=== PATIENT | female | born 1980 | race Caucasian/White ===

== ENCOUNTER 2024-01-12 21:09 | Emergency (ER) | payer OTHER, SELFPAY ==
[2024-01-12 21:12] VITALS: BP 160/98; PULSE 82; TEMP 36.6; O2SAT 98; BMI 40.2
--- NOTE | 2024-01-12 21:20 | XR_ITS ---
The [address] [address] Patient Name: ONESIMO LOPEZ MRN: [id number] date: 1980 Sex: F Assigned Patient Location: ER Current Patient Location: ER Accession/Order Number: [id number] Exam Date: 01/12/2024 21:45 Report Date: 01/12/2024 22:20 At the request of: KINJAL GAXIOLA Procedure: XR elbow RT min 3V EXAM: XR elbow RT min 3V HISTORY: The patient is a 43-year-old female, right elbow injury COMPARISON: None. FINDINGS: The right elbow is radiographically negative with no evidence of fracture, dislocation, fat pad elevation, or other osseous or articular abnormalities. XR/XR elbow RT min 3V IMPRESSION: Negative. Electronically authenticated by: EMIR PRITCHETT Date: 01/12/2024 22:20
--- NOTE | 2024-01-12 21:21 | ED.UPPEXIN1 ---
HPI HPI - Extremity Injury (Upper) General Chief Complaint: Extremity Injury, Upper Stated Complaint: Upper Extremity Injury Time Seen by Provider: 01/12/24 21:14 Source: patient Mode of arrival: walk-in Limitations: no limitations History of Present Illness HPI narrative: Patient is a 43-year-old female presents to the emergency department for right elbow pain after hitting her right elbow on a door frame yesterday. She complains of pain over the lateral epicondyle of the right elbow with radiation of the pain to the forearm and hand. No numbness or tingling. She denies any other associated injuries. She states today the area is still swollen and painful. No meds prior to arrival. She has no concern for . Related Data Home Medications ?Medication ?Instructions ?Recorded ?Confirmed losartan 100 tab 01/12/24 mg-hydrochlorothiazide 25 mg tablet Previous Rx's ?Medication ?Instructions ?Recorded ketorolac 10 mg tablet 10 mg PO TID PRN pain #10 tabs 01/12/24 Allergies Allergy/AdvReac Type Severity Reaction Status Date / Time Penicillins Allergy Intermediate Unknown Verified 01/12/24 21:19 Opioid HPI Opioid Management Most Recent Pain and Opioid Data: No Data to Display Review of Systems ROS Constitutional Denies: fever or chills Ears, nose, mouth, and throat Denies: throat pain or nasal congestion Respiratory Denies: shortness of breath Gastrointestinal Denies: nausea or vomiting Musculoskeletal Reports: extremity pain, extremity swelling and joint pain; Denies: back pain, neck pain or limited range of motion Integumentary/Breast Denies: rash Neurological Denies: numbness in extremities or weakness in extremities Hematologic/Lymphatic Denies: easy bruising or easy bleeding PFSH PFS Social History Little interest or pleasure in doing things: not at all Feeling down, depressed, or hopeless: not at all Exam Narrative Exam Narrative: Gen.: Awake, alert, in no distress Head: Normocephalic, atraumatic ENT: Moist mucous membranes Respiratory: No respiratory distress Extremities: Full extension of the right elbow, no obvious deformity. Mild bony tenderness of the lateral epicondyle of the right elbow. No joint effusion or bursitis noted Psych: Normal mood and affect Neuro: No focal neuro deficit Skin: Warm, dry, intact Constitutional Vital Signs, click to edit/add: Last Vital Signs Temp 97.8 F 01/12/24 21:12 Pulse 82 01/12/24 21:12 Resp 18 01/12/24 21:12 BP 160/98 H 01/12/24 21:12 Pulse Ox 98 01/12/24 21:12 O2 Del Method Room Air 01/12/24 21:12 Course Vital Signs Vital signs: Vital Signs Temperature 97.8 F 01/12/24 21:12 Pulse Rate 82 01/12/24 21:12 Respiratory Rate 18 01/12/24 21:12 Blood Pressure 160/98 H 01/12/24 21:12 Pulse Oximetry 98 01/12/24 21:12 Oxygen Delivery Method Room Air 01/12/24 21:12 Temperature 97.8 F 01/12/24 21:12 Pulse Rate 82 01/12/24 21:12 Respiratory Rate 18 01/12/24 21:12 Blood Pressure 160/98 H 01/12/24 21:12 Pulse Oximetry 98 01/12/24 21:12 Oxygen Delivery Method Room Air 01/12/24 21:12 MDM - Extremity Injury (Upper) MDM Narrative Medical decision making narrative: X-rays of the right elbow with no evidence of fracture or dislocation. Continue ice, elevate. NSAIDs given for home. Follow-up PCP. Jose wrap applied in the ER and patient is neurovascularly intact at discharge. Return to the ER if symptoms change or worsen SUPERVISED APC VISIT, PHYSICIAN ATTESTATION: Based on the medical record the care appears appropriate. ? Medical Records Attestation: I reviewed the patient's medical records. Imaging Data XR elbow: Attestation: I have reviewed the pertinent imaging results. Discharge Plan Discharge Chief Complaint: Extremity Injury, Upper Clinical Impression: Contusion of right elbow Patient Disposition: Home, Self-Care Time of Disposition Decision: 22:06 Condition: Good Prescriptions / Home Meds: New ketorolac 10 mg tablet 10 mg PO TID PRN (Reason: pain) Qty: 10 0RF No Action losartan-hydrochlorothiazide 100-25 mg tablet Print Language: Indonesian Instructions: Contusion in Adults (ED) Referrals: EDNA VILLAVICENCIO [Primary Care Provider] - 1 week
[2024-01-12] MEDS: KETOROLAC TROMETHAMINE 10 MG TABLET PO (21:27)
== END 2024-01-12 22:22 | disposition home or self-care (01) ==
PROVIDERS: Emergency Provider Student in an Organized Health Care Education/Training Program; PCP Family Medicine
DX: S50.01XA Contusion of right elbow, initial encounter (principal); W22.09XA Striking against other stationary object, initial encounter
CPT/HCPCS: 73080; 99284

== ENCOUNTER 2025-03-10 21:47 | Emergency (ER) | payer OTHER, SELFPAY ==
--- OUTSIDE RECORDS SUMMARY | 2021-04-22 10:15 | XMS_ITS | Continuity of Care Document ---
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 [address] [place], [place], [id number] , [place]. tel: [phone] [facility], [address] [place], [place], [id number], tel:[phone] [facility] cervical spine (chief complaint)c ervical spine (chief complaint) Segmental and somatic dysfunction of cervical regionCervicalgia Radiculopathy, cervical regionSegmental and somatic dysfunction of lumbar region 2 Severo Mandujano. [address] [place], [place], [id number] , [place]. tel: [phone] [facility], [address] [place] [address], [id number], tel:[phone] [facility] cervical spine (chief complaint)c ervical spine (chief complaint) Segmental and somatic dysfunction of cervical regionCervicalgia Radiculopathy, cervical regionSegmental and somatic dysfunction of lumbar region 1 Severo Mandujano. [address] [place], [place], [id number] , [place]. tel: [phone] [facility], [address] [place] [address], [id number], [place] tel:[phone] [facility] cervical spine (chief complaint)c ervical spine (chief complaint) Segmental and somatic dysfunction of cervical regionCervicalgia Radiculopathy, cervical regionSegmental and somatic dysfunction of lumbar region 1 Severo Mandujano. [address] [place] [address], [id number] , [place]. tel: [phone] [facility], [address] [place] [address], [id number], [place] tel:[phone] [facility] cervical spine (chief complaint)c ervical spine (chief complaint) Segmental and somatic dysfunction of cervical regionCervicalgia Radiculopathy, cervical regionSegmental and somatic dysfunction of lumbar region 1 Severo Mandujano. [address] [place] [address], [id number] , [place]. tel:[phone] [facility], [address] [place], [place], [id number], [place] tel:[phone] [facility] cervical spine (chief complaint)c ervical spine (chief complaint) Segmental and somatic dysfunction of cervical regionCervicalgia Radiculopathy, cervical regionSegmental and somatic dysfunction of lumbar region 1 Severo Mandujano. [address] [place] [address], [id number] , [place]. tel: [phone] [facility], [address] [place] [address], [id number], [place] tel:[phone] [facility] cervical spine (chief complaint)c ervical spine (chief complaint) Segmental and somatic dysfunction of cervical regionCervicalgia Radiculopathy, cervical regionSegmental and somatic dysfunction of lumbar region 1 Severo Mandujano. [address] [place] [address], [id number] , [place]. tel: [phone] [facility], [address] [place] [address], [id number], [place] tel:[phone] [facility] cervical spine (chief complaint)c ervical spine (chief complaint) Segmental and somatic dysfunction of cervical regionCervicalgia Radiculopathy, cervical regionSegmental and somatic dysfunction of lumbar region 1 Severo Mandujano. [address] [place] [address], [id number] , [place]. tel: [phone] [facility], [address] [place] [address], [id number], [place] tel:[phone] [facility] cervical spine (chief complaint)c ervical spine (chief complaint) Segmental and somatic dysfunction of cervical regionCervicalgia Radiculopathy, cervical regionSegmental and somatic dysfunction of lumbar region 1 Severo Mandujano. [address] [place] [address], [id number] , [place]. tel: [phone] [facility], [address] [place] [address], [id number], [place] tel:[phone] [facility] cervical spine (chief complaint)c ervical spine (chief complaint) Segmental and somatic dysfunction of cervical regionCervicalgia Radiculopathy, cervical regionSegmental and somatic dysfunction of lumbar region 8 1 Severo Mandujano. [address] [place] [address], [id number] , [place]. tel: [phone] [facility], [address] [place] [address], [id number], [place] tel:[phone] [facility] cervical spine (chief complaint)c ervical spine (chief complaint) Segmental and somatic dysfunction of cervical regionCervicalgia Radiculopathy, cervical regionSegmental and somatic dysfunction of lumbar region 1 Severo Mandujano. [address] [place] [address], [id number] , [place]. tel: [phone] [facility], [address] [place] [address], [id number], [place] tel:[phone] [facility] cervical spine (chief complaint)c ervical spine (chief complaint) Segmental and somatic dysfunction of cervical regionCervicalgia Radiculopathy, cervical regionSegmental and somatic dysfunction of lumbar region 2- 1 Severo Mandujano. [address] [place] [address], [id number] , [place]. tel: [phone] [facility], [address] [place] [address], [id number], [place] tel:[phone] [facility] cervical spine (chief complaint)c ervical spine (chief complaint) Segmental and somatic dysfunction of cervical regionCervicalgia Radiculopathy, cervical regionSegmental and somatic dysfunction of lumbar region 7- 1 Severo Mandujano. [address] [place] [address], [id number] , [place]. tel: [phone] [facility], [address] [place] [address], [id number], [place] tel:[phone] [facility] cervical spine (chief complaint)c ervical spine (chief complaint) Segmental and somatic dysfunction of cervical regionCervicalgia Radiculopathy, cervical regionSegmental and somatic dysfunction of lumbar region 1 Severo Mandujano. [address] [place], [place], [id number] , [place]. tel:[phone] [facility], [address] [place], [place], [id number], [place] tel:[phone] [facility] cervical spine (chief complaint)c ervical spine (chief complaint) Segmental and somatic dysfunction of cervical regionCervicalgia Radiculopathy, cervical regionSegmental and somatic dysfunction of lumbar region 1 Severo Mandujano. [address] [place], [place], [id number] , [place]. [phone] [facility], [address] [place] [address], [id number], [place] tel:[phone] [facility] No Information 1 Visci DO Joaquín. [address] [place], [place], [id number] , [place]. [phone] [facility], [address] [place] [address], [id number], [place] tel:[phone] [facility] No Information 1 Visci DO Joaquín. [address] [place], [place], [id number] , [place]. tel:[phone] Family History Family Member Type Diagnosis Age At Onset No Information Payers Payer name Insurance type Covered constitution party ID Authoriza tion(s) [place] Adv [facility] [id number] [facility] [id number] Social History Type Description Quantity Date Captured [...]
[2025-03-10 21:55] VITALS: BP 158/97; PULSE 83; TEMP 36.6; O2SAT 100; BMI 36.6
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
--- OUTSIDE RECORDS SUMMARY | 2025-03-10 22:44 | XMS_ITS | CCD ---
Author Organization [facility] Inform ion Partnership [facility] Care Team Providers Care Home Health Clinical Liaison Name Role Phone ELIO, DR DIONICIO Lancaster Attending Unavailable ELIO, DR DIONICIO Lancaster Consulting Unavailable MAYE, DR BISHOP Primary Care Unavailable ELIO, DR DIONICIO Lancaster Admitting Unavailable TRENT, JAVIER Consulting Unavailable MAYE, DR BISHOP Primary Care Unavailable RAGHU, DR BERMEO Admitting Unavailable PITER, DR RANDY Smith Consulting Unavailable RAGHU, DR BERMEO Attending Unavailable RAGHU, DR BERMEO Consulting Unavailable KLYM, JIM Consulting Unavailable Jerry Reynolds DO Unavailable [phone] Lázaro Villavicencio DO Primary Care Provider [phone] JERRY REYNOLDS Attending Unavailable CUTLER JERRY L Referring Unavailable CUTLER JERRY L Referring Unavailable CUTLER JERRY L Attending Unavailable Allergies Allergy ClassificationReported Allergen(s)Allergy TypeDate of OnsetReaction(s) Facility (1 source)PenicillinsDrug allergy (disorder)98-97-9424[facility] (7 sources)Angiotensin-converting enzyme inhibitor agentDrug Vrnhvib28-44-4632 [facility] (7 sources)CodeineDrug Lofkjjh05-47-0500RG intoleranceMercy hospital springfield (7 sources)Corinth OilDrug Ggdmzvl29-13-8705MsbxrbmCUCU Healthcare (7 sources)PenicillinsDrug Ztsoehhdemi71-24-7830WsufndnOCIB Healthcare Medications Current Medications MedicationDrug Class(es)DatesSig (Normalized)Sig (Original)acyclovir 200 mg oral capsule (7 sources)Herpesvirus Nucleoside Analog DNA Polymerase Inhibitor, Herpes Simplex Virus Nucleoside Analog DNA Polymerase Inhibitor, Herpes Zoster Virus Nucleoside Analog DNA Polymerase InhibitorStart: 94-25-0911kbyx 1 capsule by mouth twice dailyacyclovir (Zovirax) 200 MG capsule Indications: Herpes TAKE 1 CAPSULE BY MOUTH TWICE A DAY FOR 5 DAYS 10 capsule 2 02/23/2024 Active hydroCHLOROthiazide 25 mg / losartan potassium 100 mg oral tablet (9 sources)Thiazide Diuretic, Angiotensin 2 Receptor BlockerStart: 08-26-2023 End: 76-13-3218ldcb 1 tablet by mouth once dailylosartan-hydroCHLOROthiazide (Hyzaar) 100-25 MG tablet Indications: Essential hypertension Take 1 tablet by mouth Daily 90 tablet 3 05/11/2024 Active Completed/Discontinued Medications MedicationDrug Class(es)DatesSig (Normalized)Sig (Original)azelastine hydrochloride 0.137 mg/actuat metered dose nasal spray (3 sources)Histamine-1 Receptor AntagonistStart: 08-24-2023 End: 90-57-9784yhov 2 spray(s) nasal route in the morningazelastine (Astelin) 0.1 % nasal spray Indications: Chronic rhinitis Administer 2 sprays into each n ostril in the morning and 2 sprays before bedtime. Use 20 minutes before breakfast and dinner. 90 mL 3 08/24/2023 05/11/2024 Discontinuedipratropium bromide 0.042 mg/actuat metered dose nasal spray (6 sources)AnticholinergicStart: 08-24-2023 End: 44-60-1538yypw 2 spray(s) nasal route in the morning, then take 2 spray(s) nasal route in the evening, then take 2 spray(s) nasal route three times daily at bedtimeipratropium (Atrovent) 0.06 % nasal spray Indications: Chronic rhinitis Administer 2 sprays into each nostril in the morning and 2 sprays in the evening and 2 sprays before bedtime. Use nasal spray 20 minutes before meals 3 times a day. 15 mL 11 08/24/2023 11/09/2024 Discontinued Problems Active Problems Problem ClassificationProblemDateDocumented DateEpisodic/ChronicAsthma (7 sources)Asthma; Translations: [Unspecified asthma, uncomplicated]Onset: 911490-60-2867YvwqmovMzaxohhru of lipid metabolism (2 sources)Hyperlipidemia; Translations: [Hyperlipidemia, unspecified]05-11-2024 ChronicE Codes: Natural/environment (1 source)Exposure to other specified factors, initial encounter; Translations: [EXPOSURE OTHER SPEC FACTORS INITIAL]Onset: 56-67-8336YfyteloxSgcekhghx hypertension (17 sources)Essential (primary) hypertension; Translations: [Essential hypertension]Onset: 069924-56-1957HvbmdmcFxmnulmhured complicating ; childbirth and the puerperium (7 sources)Benign essential hypertension in obstetric context; Translations: [Pre-existing essential hypertension complicating , unspecified trimester]Onset: 947638-19-8101MddxwviYapcv aftercare (1 source)Other usp (current) drug therapy; Translations: [OTH SENIOR LIVING CURRENT DRUG THERAPY]Onset: 40-60-8154SlizpuqoJhqyv ear and sense organ disorders (6 sources)Hearing loss of right ear; Translations: [Unspecified hearing loss, right ear]06-43-4994BpqbmbhKcbje nervous system disorders (7 sources)Carpal tunnel syndrome; Translations: [Carpal tunnel syndrome, unspecified upper limb]Onset: 100397-02-7334InhgcxzBqdwv non-traumatic joint disorders (2 sources)Joint pain; Translations: [Pain in unspecified joint]11-09-2024 EpisodicOther non-traumatic joint disorders (2 sources)Multiple joint pain; Translations: [Pain in unspecified joint] 48-98-5786PmnwtsqaNatmn non-traumatic joint disorders (2 sources)Joint stiffness; Translations: [Stiffness of unspecified joint, not elsewhere classified]48-29-0675JoueexrnMjucm nutritional; endocrine; and metabolic disorders (7 sources)Obesity; Translations: [Obesity, unspecified]Onset: 05-10-2024 78-51-4283TxqtwesUotfb screening for suspected conditions (not mental disorders or infectious disease) (4 sources)Patient encounter status; Translations: [Encounter for screening mammogram for malignant neoplasm of breast]27-58-9465XkcxjxgoSqogfjhfafx; intervertebral disc disorders; other back problems (3 sources)Cervicalgia; Translations: [CERVICALGIA]Onset: 74-25-3905Sppaqjty Sprains and strains (1 source)Strain of muscle, fascia and tendon at neck level, initial encounter; Translations: [STRN MUSC FASCTENDON NECK LEVL INT]Onset: 91-62-3607Uwfeudgw Past or Other Problems Problem ClassificationProblemDateDocumented DateEpisodic/ChronicOther complications of (7 sources)Poor growth affecting management; Translations: [Maternal care for other known or suspected poor growth, unspecified trimester, not applicable or unspecified]Onset: 492930-97-2283SzqlrtcaAamrv nervous system disorders (4 sources)Anesthesia of skin; Translations: [ANESTHESIA OF SKIN]Onset: 61-11-4393YuuzkcmwCxgix nutritional; endocrine; and metabolic disorders (7 sources)Abnormal weight gain; Translations: [Abnormal weight gain]Onset: 854045-26-4692PjgghqngAwgvpav cyst (7 sources)Cyst of ovary; Translations: [Unspecified ovarian cyst, unspecified side]Onset: 447369-64-4723Juihhdws Results Test NameValueInterpretationReference RangeFacilityBI MAMMOGRAM SCREENING TOMOSYNTHESIS BILATERALon 96-90-1134XR MAMMOGRAM SCREENING TOMOSYNTHESIS BILATERALThis is a summary report. The complete report is available in the patient's medical record. If you cannot access the medical record, please contact the sending organization for a detailed fax or copy. Examination: BI MAMMOGRAM SCREENING TOMOSYNTHESIS BILATERAL Clinical History: screening Technique: Screening digital mammography study of both breasts was performed with 2-D and 3-D tomosynthesis imaging. Study was compared to the prior exam dated 06/23/2012. Findings: There is no evidence of interval dominant spiculated mass, grouped microcalcifications, or skin thickening which would be suggestive of malignancy. A few benign-appearing calcifications are noted bilaterally. Small benign- appearing asymmetric density in the mid, lateral aspect of the left breast faintly suggested previously and likely representing focal fibrocystic change. IMPRESSION: Impression: No specific evidence of malignancy seen in either breast. BIRADS 2 - Benign Findings DENSITY: There are scattered areas of fibroglandular density. FOLLOW-UP: Routine Screening Mammogram ELECTRONICALLY SIGNED BY: Cosme Ayala M.D.NormalNot AvailableCBC W Auto Differential panel (Bld)on 83-67-3298Ryesuttwq (Bld) [#/Vol]0.1 10*3/uLNOMS HealthcareBasophils/100 WBC (Bld)1 %Not Estab.NOMS HealthcareEosinophils (Bld) [#/Vol]0.2 10*3/uLNOMS HealthcareEosinophils/100 WBC (Bld)3 %Not Estab.NOM HealthcareErythrocyte distribution width (RBC) [Ratio]12.7 %11.7 - 15.4 %[facility]OMS HealthcareHematocrit (Bld) [Volume fraction]43.6 %34.0 - 46.6 %[facility] Healthcare Hemoglobin (Bld) [Mass/Vol]14 g/dL11.1 - 15.9 g/dLNOOK HealthcareImmature granulocytes (Bld) [#/Vol]0 10*3/uLNOMS HealthcareImmature granulocytes/100 WBC (Bld)0 %Not Estab.NOMS HealthcareLymphocytes (Bld) [#/Vol]1.8 10*3/uLNOMS HealthcareLymphocytes/100 WBC (Bld)25 %Not Estab.[facility] HealthcareMCH (RBC) [Entitic mass]27.1 pg26.6 - 33.0 pgNOOK HealthcareMCHC (RBC) [Mass/Vol]32.1 g/dL 31.5 - 35.7 g/dLMOUNTAIN POINT MEDICAL [facility]ENTER HealthcareMCV (RBC) [Entitic vol]84 fL79 - 97 fLMOUNTAIN POINT MEDICAL CENTER HealthcareMonocytes (Bld) [#/Vol]0.4 10*3/uLNOMS HealthcareMonocytes/100 WBC (Bld)6 %Not Estab.NOM HealthcareNeutrophils (Bld) [#/Vol]4.5 10*3/uLNOMS HealthcareNeutrophils/100 WBC (Bld)65 %Not Estab.[facility] HealthcarePlatelets (Bld) [#/Vol]289 10*3/uLNOMS HealthcareRBC (Bld) [#/Vol]5.17 10*6/uLNOMS HealthcareWBC (Bld) [#/Vol]7 10*3/uLNOMS HealthcareLaboratory - Chemistry and Chemistry - challengeon 08-82-2531Zjulqtc [Mass/Vol]4.4 g/dL3.9 - 4.9 g/dLNOMS HealthcareALP [Catalytic activity/Vol]59 U/LNOMS HealthcareALT [Catalytic activity/Vol]14 U/L NOMS HealthcareAST [Catalytic activity/Vol]16 U/LNOMS HealthcareBilirubin [Mass/Vol]0.7 mg/dL0.0 - 1.2 mg/dLNOOK HealthcareCalcium [Mass/Vol]9.5 mg/dL8.7 - 10.2 mg/dLNOOK HealthcareChloride [Moles/Vol]100 mmol/L96 - 106 mmol/LNOMS HealthcareCO2 [Moles/Vol]25 mmol/L20 - 29 mmol/LNOMS HealthcareCreatinine [Mass/Vol]0.85 mg/dL0.57 - 1.00 mg/dLNOOK HealthcareGFR/1.73 sq M.predicted among non-blacks MDRD (S/P/Bld) [Vol rate/Area]88 mL/min/{1.73_m2}59 - PINF mL/min/1.73NOMS HealthcareGlobulin (S) [Mass/Vol]2.8 g/dL1.5 - 4.5 g/dLNOOK HealthcareGlucose [Mass/Vol]88 mg/dL70 - 99 mg/dLNOOK HealthcarePotassium [Moles/Vol]4 mmol/L3.5 - 5.2 mmol/LNOMS HealthcareProtein [Mass/Vol]7.2 g/dL6.0 - 8.5 g/dLNOOK HealthcareSodium [Moles/Vol]139 mmol/L134 - 144 mmol/LNOMS HealthcareUrea nitrogen [Mass/Vol]17 mg/dL6 - 24 mg/dLNOOK HealthcareUrea nitrogen/Creatinine [Mass ratio]20 mg/mg9 - 23NOOK HealthcareLipid 1996 panelon 95-77-2705Yhoxuqpziao [Mass/Vol]201 mg/wNPwfq868 - 199 mg/dLNOCarondelet Health Cholesterol in HDL [Mass/Vol]54 mg/dL39 - PINF mg/dLNOOK HealthcareCholesterol in LDL [Mass/Vol]134 mg/dLHigh0 - 99 mg/dLNOOK HealthcareCholesterol in VLDL [Mass/Vol]13 mg/dL5 - 40 mg/dLNOOK HealthcareInterpretation and review of laboratory resultsAbnormalNOOK HealthcareTriglyceride [Mass/Vol]69 mg/dL0 - 149 mg/dLNOCarondelet HealthNo Panel Informationon 52-66-3296Pfbomqifc at: 01 - LabJeremy Ville [id number] Cell Biologist: Eduardo Hollis PhD, Phone: [phone] HealthcareXR Hip Complete Left*on 04-47-6572NE Hip Complete Left*CLINICAL HISTORY: Left lateral hip pain. Leg weakness. COMPARISON: None. RESULT: No radiographic evidence for acute fracture in the bony pelvis or hips. Alignment at the SI joints and pubic symphysis maintained. Lower lumbar spine unremarkable. Hip joint spaces appear maintained. Soft tissues unremarkable. IMPRESSION: No acute osseous findings. Report reported and signed by Turner Wiseman on 01/02/2022 1457NormalNortOhioHealth Dublin Methodist HospitalXR CSPINE 2_3 VIEWSon 79-85-1299JA CSPINE 2_3 VIEWSEXAM: C-spine HISTORY: Neck pain and difficulty rotating the neck, no known injury. Comparison studies: MRI C-spine dated 05/08/2021 TECHNIQUE: 4 views of the cervical spine were obtained. FINDINGS: There is no evidence of acute fracture or subluxation. The frontal view shows a gentle S-shaped curvature in the cervicothoracic spine. The lateral view shows partial straightening of the normal curvature. No suspicious bone lesions are seen. Mild degenerative changes are seen. The rest of the visualized structures are unremarkable. IMPRESSION: No acute findings. Altered curvatures on the frontal and lateral views. Electronically authenticated by: JAVIER NEWMAN Date: 2021-08-01 08:30[facility] HospitalMRI BRAIN WO CONon [id number] BRAIN WO CONMRI BRAIN WITHOUT CONTRAST; 05/08/2021 2:34 PM EST Clinical History:Anesthesia of skin Comparison: None available . SEQUENCES: Per routine unenhanced protocol. STUDY QUALITY: Good On this unenhanced examination, there is no distinct evidence of intracranial mass. No mass effect is evident. No midline shift. No evidence of acute infarction. No restricted diffusion. No unexpected paramagnetic substance deposition. Very mild scattered supratentorial white matter disease. This is primarily subcortical. The corpus callosum is unremarkable in appearance. The brachium ponti are unremarkable. VESSELS: Signal voids are present in the major intracranial blood vessels. BRAIN VOLUME: Normal VENTRICLES: No hydrocephalus ORBITS: No acute finding. SELLA/ SUPRASELLAR: No acute process at relatively thick sections CP ANGLES: No acute process is evident at relatively thick sections UPPER CERVICAL: No acute finding PARANASAL SINUSES: Areas of relatively mild mucosal thickening in the ethmoids MASTOIDS: Some fluid signal within aspects right mastoids with probable extension into the aditus ad antrum. This was present on a 04/15/[address] CALVARIUM: No acute finding. OTHER: None IMPRESSION: 1. No evidence of acute intracranial process on this unenhanced study as described. 2. Fairly mild scattered supratentorial white matter disease is nonspecific. The appearance and distribution of the disease is not at all pathognomonic for a demyelinating process such as MS. 3. Right mastoids as described. No change from the CT of 04/15/2019. Etiology unknown. Significance unknown Electronically authenticated by: JIM HICKEY Date: 2021-05-09 07:[address] [place], [place] [address]I CSPINE WO CONon [id number] [facility] CONEXAMINATION: MRI [facility] CON HISTORY: Anesthesia of skin COMPARISON: No relevant comparison available. TECHNIQUE: A variety of imaging planes and parameters were utilized for visualization of suspected pathology. FINDINGS: CRANIOCERVICAL AREA: Normal foramen magnum with no Chiari malformation. PARASPINAL AREA: Normal with no visible mass. BONES: No fracture, pars defect, or osseous lesion. CORD: Normal caliber, contour, and signal intensity. CERVICAL DISC LEVELS: C2-C3: No significant disc/facet abnormality, spinal stenosis, or foraminal stenosis. C3-C4: No significant disc/facet abnormality, spinal stenosis, or foraminal stenosis. C4-C5: No significant disc/facet abnormality, spinal stenosis, or foraminal stenosis. C5-C6: No significant disc/facet abnormality, spinal stenosis, or foraminal stenosis. C6-C7: No significant disc/facet abnormality, spinal stenosis, or foraminal stenosis. C7-T1:. No significant disc/facet abnormality, spinal stenosis, or foraminal stenosis. IMPRESSION: Normal exam Electronically authenticated by: RANDY DUMAS Date: 2021-05-09 07:[address] [place] [address] Vital Signs Date TimeVital SignValuePerforming BxtgugvsbMzouajra50-88-5236 08:55-0400Body livphi984.5 Aixa Reynolds DO Work Phone: [phone]07-30-2025 08:55-0400Body mass index (BMI) [Ratio]39.69 kg/f5Tmztlcv Kincheloe DO Work Phone: [phone] [place], [place] 0611807-30-2025 08:55-0400Body temperature 97.39 [degF]Jerry Kincheloe DO Work Phone: [phone] [place], [place] 0611807-30-2025 08:55-0400Body zluwav70.43 kgTimothy Kincheloe DO Work Phone: [phone] [place], [place] [address]Garoqdedvx19-20-4738 08:55-0400Diastolic blood mm[Hg]Jerry Kincheloe DO Work Phone: [phone] [place], [place] 0611807-30-2025 08:55-0400Heart rate75 /min Jerry Kincheloe DO Work Phone: [phone] [place], [place] 0611807-30-2025 08:55-7163EpI7% (BldA) [Mass fraction]98 %Jerry Kincheloe DO Work Phone: [phone] [place], [place] 0611807-30-2025 08:55-0400Systolic blood mm[Hg]Jerry Kincheloe DO Work Phone: [phone] [place], [place] 0611801-29-2025 08:14-0500Body .5 cmTimothy Kincheloe DO Work Phone: [phone] [place], [place] 0611801-29-2025 08:14-0500Body mass index (BMI) [Ratio]41.3 kg/n1Ibefthu Kincheloe DO Work Phone: [phone] [place], [place] 0611801-29-2025 08:14-0500Body temperature 98.29 [degF]Jerry Kincheloe DO Work Phone: [phone] [place], [place] 0611801-29-2025 08:14-0500Body joyaqe554.42 kgTimothy Kincheloe DO Work Phone: [phone] [place], [place] 0611801-29-2025 08:14-0500Diastolic blood eymlfiuu94 mm[Hg]Jerry Kincheloe DO Work Phone: [phone] [place], [place] 0611801-29-2025 08:14-0500Heart rate71 /min Jerry Kincheloe DO Work Phone: [facility] Ywwnsrqddy95-82-1452 08:14-9479WxN1% (BldA) [Mass fraction]99 %Jerry Kincheloe DO Work Phone: noms Llfcaxvihn24-44-1467 08:14-0500Systolic blood dpbzaadv124 mm[Hg]Jerry Kincheloe DO Work Phone: [facility] Encounters Encounter DateEncounter TypeCare ProviderFacilityStart: 11-09-2024 End: 36-22-9467Xdvjdh flowsheetTimothy L Kincheloe DO Work Phone: [facility] 230Start: 11-09-2024 End: 62-20-1017Lngvkl flowsheetTimothy L Kincheloe DO Work Phone: [facility] 230Start: 11-09-2024 End: 07-91-9372Nldygztyj encounterTimothy L Kincheloe DO Work Phone: [facility] 230Comment on above: ReferralStart: 11-09-2024 End: 60-52-2536Wdruxfc encounter statusTimothy L Kincheloe DO Work Phone: noms HealthcareStart: 11-09-2024 End: 67-39-8685Ccryfwfy preventive med est patient 40-64yrsTimothy L Kincheloe DO Work Phone: [facility] 230Comment on above: Wellness examination (Primary Dx); Arthralgia, unspecified joint; Encounter for screening for coronary artery disease; Polyarthralgia; Stiff joint; Hearing loss of right ear, unspecified hearing loss typeStart: 11-09-2024 End: 85-04-6711xutfyafgpsXEGOFEK L CUTLERNot AvailableStart: 06-17-2024 End: 56-62-2976qjnqejbxsbLRFMVYH L CUTLERNot AvailableStart: 05-11-2024 End: 50-84-6243Vrafet flowsheetTimothy L Kincheloe DO Work Phone: [facility] 230Start: 05-11-2024 End: 21-83-6980Dfcfgz flowsheetTimothy L Kincheloe DO Work Phone: [facility] 230Start: 05-11-2024 End: 27-47-7042Beaiso outpatient visit 25 minutesTimothy Bhaskar Kincheloe DO Work Phone: [facility] 230Comment on above:Hyperlipidemia, unspecified hyperlipidemia type (CMS/HCC) (Primary Dx); Encounter for screening mammogram for malignant neoplasm of breast; Essential hypertension (CMS/HCC)Start: 05-11-2024 End: 12-48-7263gzjhhhesgeHESWEWA Bhaskar CUTLERNot AvailableStart: 08-01-2021 End: 34-61-0176apadhrtrkyWT DIONICIO BALLARDFacility:D8Zuzvf: 05-08-2021 End: 68-87-9067ieqyjdmlnpIQ PAUL BRUNERFacility:H1 Procedures DateProcedureProcedure DetailPerforming ClinicianStart: 11-66-2334Nfwubtydzuu Jerry Kincheloe DO Work Phone: Start: 73-42-8480Ceucfunf blood count with white cell differential, automatedTimcarmen Muro Kincheloe DO Work Phone: Start: 28-48-9109Qdoiiyqfoyrez metabolic panelTimothy L Kincheloe DO Work Phone: Start: 82-22-8343Aedcj panelTimothy L Kincheloe DO Work Phone: Plan of Treatment DateCare ActivityDetailAuthorStart: 06-29-4585Yckbjdadf for malignant neoplasm of breastMammogramNOMS HealthcareStart: 05-12-2025 End: 17-34-2866Qinmpdg encounter /30/2026 8:00 AM EST Office Visit Formerly [facility], [facility] [place] [address] Jerry Reynolds, DO [address] [place], [place] [phone] Formerly [facility], [facility] 230 Start: 65-47-3082Zajcvmpfw vaccinationInfluenza Vaccine (#1)[facility] Start: 11-09-2024 End: 78-87-9845YFN by IFA, Reflex to Titer and PatternANA by IFA, Reflex to Titer and Pattern Lab Routine Arthralgia, unspecified joint Expected: 11/09/2024 (Approximate), Expires: 11/09/2025[facility] HealthcareComment on above:Expected: 11/09/2024 (Approximate), Expires: 11/09/2025Start: 11-09-2024 End: 11-09-2025. burgdorferi antibodiesB. burgdorferi antibodies Lab Routine Arthralgia, unspecified joint Expected: 11/09/2024, Expires: 11/09/2025[facility] HealthcareComment on above:Expected: 11/09/2024, Expires: 11/09/2025Start: 11-09-2024 End: 11-09-2025 reactive protein [Mass/volume] in Serum or PlasmaC-reactive protein Lab Routine Arthralgia, unspecified joint Expected: 11/09/2024 (Approximate), Expires: 11/09/2025[facility] HealthcareComment on above:Expected: 11/09/2024 (Approximate), Expires: 11/09/2025Start: 11-09-2024 End: 15-80-4590HKC W Auto Differential panel - BloodCBC and differential Lab Routine Wellness examination Encounter for screening for coronary artery disease Expected: 11/09/2024, Expires: 11/09/2025[facility] HealthcareComment on above: Expected: 11/09/2024, Expires: 11/09/2025Start: 11-09-2024 End: 40-69-0382Femvpgytngeex metabolic 2000 panel - Serum or PlasmaComprehensive metabolic panel Lab Routine Wellness examination Encounter for screening for coronaryartery disease Expected: 11/09/2024, Expires: 11/09/2025[facility] Healthcare Comment on above:Expected: 11/09/2024, Expires: 11/09/2025Start: 11-09-2024 End: 38-90-4257Rqxpac stranded dna, igg, reflex titerDouble stranded dna, igg, reflex titer Lab Routine Arthralgia, unspecified joint Expected: 11/09/2024 (Approximate), Expires: 11/09/2025[facility] HealthcareComment on above:Expected: 11/09/2024 (Approximate), Expires: 11/09/2025Start: 11-09-2024 End: 01-60-1248Rvgblqnceox sedimentation rateSedimentation rate, automated Lab Routine Arthralgia, unspecified joint Expected: 11/09/2024 (Approximate), Expires: 11/09/2025[facility] Work Phone: Comment on above:Expected: 11/09/2024 (Approximate), Expires: 11/09/2025Start: 11-09-2024 End: 40-51-7820Iumst 1996 panel - Serum or PlasmaLipid panel Lab Routine Wellness examination Encounter for screening for coronary artery disease Exp ected: 11/09/2024, Expires: 11/09/2025NOOK HealthcareComment on above:Expected: 11/09/2024, Expires: 11/09/2025Start: 11-09-2024 End: 40-06-0312Rwosxmdlpv factor [Units/volume] in Serum or PlasmaRheumatoid factor Lab Routine Arthralgia, unspecified joint Expected: 11/09/2024 (Approximate), Expires: 11/09/2025[facility] HealthcareComment on above:Expected: 11/09/2024 (Approximate), Expires: 11/09/2025Start: 11-09-2024 End: 19-19-3592Aoelz [Mass/volume] in Serum or PlasmaUric acid Lab Routine Arthralgia, unspecified joint Expected: 11/09/2024 (Approximate), Expires: [facility] HealthcareComment on above:Expected: 11/09/2024 (Approximate), Expires: 11/09/2025Start: 11-09-2024 End: 79-00-2634Iizgtvk encounter procedureNOMS [facility] FM 230Comment on above: ArrivedStart: 06-17-2024 End: 67-04-1590Rkiqbukaosel / ancillary services bjlybkdnjb46/07/2025 8:00 AM EST Ancillary Procedure [facility] [address] [place] [address] [facility] SANDUSKYStart: 05-11-2024 End: 27-48-2361EKG Breast - bilateral screeningBilateral screening mammogram with tomosynthesis Imaging Routine Encounter for screening mammogram for malignant neoplasm of breast Expected: 05/11/2024, Expires: 07/09/2025[facility] Work Phone: Comment on above:Expected: 05/11/2024, Expires: 07/09/2025Start: 05-11-2024 End: 72-13-0521Yjcimqg encounter djosxflin97/29/2025 8:20 AM EST Office Visit [facility] [address] [place] [phone] Jerry Reynolds DO [address] [place] [address] ArrivedNOMS [facility] 230Comment on above:ArrivedStart: 56-54-0924Pgjmqafbv vaccinationInfluenza Vaccine (#1)[facility] HealthcareStart: 36-32-3125Atuvowicl for malignant neoplasm of breastMammogramNOMS Healthcare Start: 67-60-6928Ugnwpgkww for malignant neoplasm of cervixNOMS HealthcareStart: 15-23-1630Jbosyxvwy for malignant neoplasm of cervixPap SmearNOMS Healthcare Payers DatePayer CategoryPayerPolicy [id number] Health InsuranceMEDICAL MUTUAL [id number] Social History DateTypeDetailFacilityStart: 72-75-2141Dgppxln smoking status NHISNever smoked tobaccoNOMS HealthcareStart: 68-15-5027Nyqckoj use and exposureSmokeless tobacco non-userNOMS HealthcareStart: 05-10-2024 End: 88-02-2567Cdxrmxc of Social functionNOMS HealthcareStart: 05-10-2024 End: [id number] Health LiteracyNOMS HealthcareHow often do you need to have someone help you when you read instructions, pamphlets, or other written material from your doctor or pharmacy [SILS]NeverNOMS HealthcareDo you belong to any clubs or organizations such as sabianism groups, unions, fraternal or athletic groups, or school groups?NoNOMS HealthcareAre you now , , , , never or living with a partner?MarriedNOMS HealthcareHow often to you have a drink containing alcohol?Monthly or lessNOMS HealthcareHow many standard drinks containing alcohol do you have on a typical day?1 or 2NOMS HealthcareHow often do you have 6 or more drinks on 1 occasion? NeverNOMS HealthcareHow hard is it for you to pay for the very basics like food, housing, medical care, and heatingSomewhat hardNOMS HealthcareDo you feel stress - tense, restless, nervous, or anxious, or unable to sleep at night because yourmind is troubled all the time - these days [OSQ]Not at allNOMS Healthcare(I/We) worried whether (my/our) food would run out before (I/we) got money to buy more.Sometimes trueNOMS HealthcareThe food that (I/we) bought just didn't last, and (I/we) didn't have money to get more.Never trueNOMS Healthcare Start: 40-06-5946Emi assigned at birthNot on [facility] [place] Functional Status LrhkKxcxmdbbwfGpdjylQegwrmbq93-56-8775Izsucso Health Questionnaire 2 item (PHQ- 2) [Reported][facility] Telephone encounter Note 11-09-2024 Note Date & [id number] Telephone encounter Note* Telephone Encounter - Erin Rizvi - 11/09/2024 11:[address] Grullon did receive the referral. Requesting fax of Most recent ov notes [facility] Healthcare Note 11-09-2024 Note Date & [id number] Miscellaneous Notes* Telephone Encounter - Erin Rizvi - 11/09/2024 11:[address] Grullon did receive the referral. Requesting fax of Most recent ov notes [facility] History of Present illness Narrative 11-09-2024 Note Date & [id number] History of Present illness Narrative* Jerry Reynolds, - 11/09/2024 9:00 AM EDT Images from the original note were not included. [facility] DANA Taylor SUBJECTIVE: HPI: Gail Montoya is a 44 y.o. female who presents with chief complaint of Follow-up Pt states she is here for a 6 month follow up. Pt states she has no concerns at this time. I have reviewed and reconciled the history and medication list with the patient today. History of Present Illness The patient presents for evaluation of Raynaud's disease and wellness visit. 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 The pain is accompanied by a change in color, with her hands turning purple and white indoors. She also experiences pain even when there is no color change. The pain is primarily located in her fingers, causing stiffness and difficulty in gripping objects. She recalls an EMG test conducted 3 years ago, which revealed mild carpal tunnel syndrome. However, she was advised against surgery due tothe mild nature of the condition. A few years ago, she received a carpal tunnel injection, but it did not provide significant relief. She mentions a tick bite she sustained 10 to 15 years ago and wonders if it could be related to her current symptoms. She also reports joint issues. She has scheduled an appointment with her [facility]OR for a Pap smear. She underwent a mammogram in June 2024, which showed no abnormalities. She occasionally experiences pain at the site of her breast reduction surgery, particularly on the sides, which are tender to touch. She has been assisting with laundry work recently. She reports no deformities. She had coffee with a very low amount of sugar today. FAMILY HISTORY Her mother has Nikia-Worley virus. Her grandmother had colon cancer in her 60s. Depression: Not at risk (11/09/2024) PHQ-2 PHQ-2 Score: 0 reports that she has never smoked. She has never used smokeless tobacco. OBJECTIVE: 03/27/2021 12:00 PM 08/02/2021 12:00 PM 01/02/2022 12:00 PM 07/16/2022 12:00 PM 08/24/2023 9:14 AM 05/11/2024 8:14 AM 11/09/2024 8:55 AM Vitals BMI 37.75 kg/m2 38.57 kg/m2 39.53 kg/m2 40.35 kg/m2 39.87 kg/m2 41.3 kg/m2 39.69 kg/m2 BSA (m2) 2.06 m2 2.08 m2 2.1 m2 2.14 m2 2.08 m2 2.11 m2 2.07 m2 Systolic 124 128 142 132 116 Diastolic 80 68 102 80 80 Heart Rate 71 75 SpO2 99 % 98 % Temp 98.3 F 97.4 F Height (in) 5' 2.75 5' 2.75 5' 2.75 5' 2.75 5' 2 5' 2 5' 2 Weight (lb) 211.4 216 221.4 226 218 225.8 217 Visit Report Report Report Report Physical Exam Physical Exam General Appearance: Alert, no distress. Respiratory: No respiratory distress, normal work of breathing. Lungs were auscultated. CV: RRR, no murmur Skin: Warm and dry, no rash. Neurological: Normal. Psychiatric: normal affect, normal thought content. Results Imaging Mammogram in June 2024 was normal. Testing EMG test conducted 3 years ago revealed mild carpal tunnel syndrome. No results found for this or any previous visit (from the past 4 weeks). ASSESSMENT AND PLAN: Assessment/Plan Diagnoses and all orders for this visit: Wellness examination - CBC and differential; Future - Comprehensive metabolic panel; Future - Lipid panel; Future Arthralgia, unspecified joint - Sedimentation rate, automated; Future - C-reactive protein; Future - KAYLA by IFA, Reflex to Titer and Pattern; Future - Rheumatoid factor; Future - Double stranded dna, igg, reflex titer; Future - Uric acid; Future - B. burgdorferi antibodies; Future Encounter for screening for coronary artery disease - CBC and differential; Future - Comprehensive metabolic panel; Future - Lipid panel; Future Polyarthralgia Stiff joint Hearing loss of right ear, unspecified hearing loss type - Ambulatory referral to Audiology; Future - Ambulatory referral to ENT; Future Assessment & Plan 1. Raynaud's disease: Chronic. - Conduct autoimmune workup including KAYLA, inflammatory markers, Lyme disease antibodies, uric acidlevel, and rheumatoid factor. - Consider adjustments to blood pressure medication if all labs return normal to help manage Raynaud's symptoms. 2. Wellness visit. - Schedule an appointment at [facility] for fasting blood work, ensuring a fasting period of 8 to 10 hours prior to the test. - Mammogram in June 2024 was normal. - Follow up with [facility] for Pap smears. Follow-up - [facility] an appointment at [facility] work. Jerry Reynolds DO Patient Active Problem List Diagnosis Abnormal weight gain Asthma (HCC) Benign essential hypertension, antepartum (HHS-HCC) Carpal tunnel syndrome Cyst of ovary Essential hypertension High blood pressure Obesity Poor growth, affecting management of mother, antepartum condition or complication (HHS-HCC) Past Medical History: Diagnosis Date [facility] of Present illness Narrative 05-11-2024 Note Date & [id number] History of Present illness Narrative* Jerry Reynolds DO - 05/11/2024 8:20 AM EST Images from the original note were not included. [facility] DANA Taylor SUBJECTIVE: HPI: Gail Montoya is a 43 y.o. female who presents with chief complaint of No chief complaint on file. Pt presents for her medication check in and blood pressure. Pt notes that she checks her BP when she is feeling off. Pt notes that she does get some tingling and weakness in her hands at times. No other concerns at this time. I have reviewed and reconciled the history and medication list with the patient today. Depression: Not on file reports that she has never smoked. She has never used smokeless tobacco. OBJECTIVE: 03/14/2021 12:00 PM 03/27/2021 12:00 PM 08/02/2021 12:00 PM 01/02/2022 12:00 PM 07/16/2022 12:00 PM 08/24/2023 9:14 AM 05/11/2024 8:14 AM Vitals BMI 38.75 kg/m2 37.75 kg/m2 38.57 kg/m2 39.53 kg/m2 40.35 kg/m2 39.87 kg/m2 41.3 kg/m2 BSA (m2) 2.09 m2 2.06 m2 2.08 m2 2.1 m2 2.14 m2 2.08 m2 2.11 m2 Systolic 124 124 128 142 132 Diastolic 80 80 68 102 80 Heart Rate 71 SpO2 99 % Temp 98.3 F Height (in) 5' 2.75 5' 2.75 5' 2.75 5' 2.75 5' 2.75 5' 2 5' 2 Weight (lb) 217 211.4 216 221.4 226 218 225.8 Visit Report Report Report Physical Exam Constitutional: General: She is not in acute distress. Appearance: She is not ill-appearing. HENT: Head: Normocephalic. Cardiovascular: Rate and Rhythm: Normal rate and regular rhythm. Heart sounds: No murmur heard. Pulmonary: Effort: Pulmonary effort is normal. Breath sounds: Normal breath sounds. No wheezing. Abdominal: General: Abdomen is flat. There is no distension. Tenderness: There is no abdominal tenderness. Musculoskeletal: General: No deformity. Normal range of motion. Cervical back: Normal range of motion. Skin: General: Skin is warm and dry. Neurological: General: No focal deficit present. Mental Status: She is alert and oriented to person, place, and time. Psychiatric: Mood and Affect: Mood normal. Behavior: Behavior normal. Thought Content: Thought content normal. Judgment: Judgment normal. Recent Results (from the past 4 weeks) CBC and differential Collection Time: 05/11/24 9:44 AM Result Value Ref Range WBC 7.0 3.4 - 10.8 x10E3/uL RBC 5.17 3.77 - 5.28 x10E6/uL Hgb 14.0 11.1 - 15.9 g/dL Hct 43.6 34.0 - 46.6 % MCV 84 79 - 97 fL MCH 27.1 26.6 - 33.0 pg MCHC 32.1 31.5 - 35.7 g/dL RDW 12.7 11.7 - 15.4 % Platelets 289 150 - 450 x10E3/uL Neutrophils 65 Not Estab. % Lymphs 25 Not Estab. % Monocytes 6 Not Estab. % Eos 3 Not Estab. % Basos 1 Not Estab. % Neutrophils Abs 4.5 1.4 - 7.0 x10E3/uL Lymphs Abs 1.8 0.7 - 3.1 x10E3/uL MonocytesAbs 0.4 0.1 - 0.9 x10E3/uL Eos Abs 0.2 0.0 - 0.4 x10E3/uL Baso Abs 0.1 0.0 - 0.2 x10E3/uL Immature Granulocytes 0 Not Estab. % Immature Grans Abs 0.0 0.0 - 0.1 x10E3/uL Comprehensive metabolic panel Collection Time: 05/11/24 9:44 AM Result Value Ref Range Glucose 88 70 - 99 mg/dL BUN 17 6 - 24 mg/dL Creat 0.85 0.57 - 1.00 mg/dL EGFR 88 >59 mL/min/1.73 BUN/Creat Ratio 20 9 - 23 Sodium 139 134 - 144 mmol/L Potassium 4.0 3.5 - 5.2 mmol/L Chloride 100 96 - 106 mmol/L Carbon Dioxide 25 20 - 29 mmol/L Calcium 9.5 8.7 - 10.2 mg/dL Protein Total 7.2 6.0 - 8.5 g/dL Albumin 4.4 3.9 - 4.9 g/dL Globulin Total 2.8 1.5 - 4.5 g/dL Bili Total 0.7 0.0 - 1.2 mg/dL Alk Phosphatase 59 44 - 121 IU/L AST 16 0 - 40 IU/L ALT 14 0 - 32 IU/L Lipid panel Collection Time: 05/11/24 9:44 AM Result Value Ref Range Cholesterol, Total 201 (H) 100 - 199 mg/dL Triglycerides 69 0 - 149 mg/dL HDL Cholesterol 54 >39 mg/dL VLDL Cholesterol Frankie 13 5 - 40 mg/dL LDL Chol Calc (NIH) 134 (H) 0 - 99 mg/dL ASSESSMENT AND PLAN: Assessment/Plan Diagnoses and all orders for this visit: Hyperlipidemia, unspecified hyperlipidemia type (CMS/HCC) - Comprehensive metabolic panel; Future - Lipid panel; Future Encounter for screening mammogram for malignant neoplasm of breast - Bilateral screening mammogram with tomosynthesis; Future Essential hypertension (CMS/HCC) - losartan-hydroCHLOROthiazide (Hyzaar) 100-25 MG tablet; Take 1 tablet by mouth Daily - CBC and differential; Future - Comprehensive metabolic panel; Future - Lipid panel; Future Reviewed recent labs, vital signs regarding all of her chronic conditions. All are well controlled at this time, continue management as above. We discussed specific dietary/lifestyle modifications which should be followed to continue to have such excellent control. We discussed appropriate follow up in 6 months here to maintain good control of these conditions and he understands to come back sooner if there are any concerning symptoms or complications. Jerry Reynolds DO Patient Active Problem List Diagnosis Abnormal weight gain Asthma (CMS/HCC) Benign essential hypertension, antepartum Carpal tunnel syndrome Cyst of ovary Essential hypertension (CMS/HCC) High blood pressure (CMS/HCC) Obesity Poor growth, affecting management of mother, antepartum condition or complication Past Medical History: Diagnosis Date Hypertension (CMS[facility]HCC) [facility] Evaluation note Note Date & TypeNoteFacilityEvaluation note* Diagnosis Hyperlipidemia, unspecified hyperlipidemia type (CMS/HCC)- Primary Encounter for screening mammogram for malignant neoplasm of breast Essential hypertension (CMS/HCC) Unspecified essential hypertension documented in this encounter [facility] Healthcare Evaluation note Note Date & TypeNoteFacilityEvaluation note* Diagnosis Wellness examination- Primary Arthralgia, unspecified joint Encounter for screening for coronary artery disease Polyarthralgia Pain in joint, multiple sites Stiff joint Stiffness of joint, not elsewhere classified, unspecified site Hearing loss of right ear, unspecified hearing loss type documented in this encounter [facility] Healthcare Summary Purpose Family History No Family History Records FoundNo Family History Records FoundNo Family History Records Found Advance Directives No Advanced Directives Records FoundNo Advanced Directives Records FoundNo Advanced Directives Records Found Additional Source Comments INFORMATION SOURCE (unrecogn ized section and content) DATE CREATED AUTHOR 10/22/2021 [facility] DATE CREATED AUTHOR AUTHOR'S ORGANIZ ATION 01/12/2022 [facility] DATE CREATED AUTHOR AUTHOR'S ORGANIZ ATION 11/11/2024 [facility] EPIC Care Teams (unrecognized sec tion and content) Team MemberRelationshipSpecialtyStart DateEnd Date Jerry Reynolds, DO [address] [place] [address] PCP - Medical [place] [employer]06/12/2311 Lázaro Villavicencio, DO [address] [place] [address] PCP - [facility]08/19/22Team MemberRelationshipSpecialtyStart DateEnd Date Jerry Reynolds, [address] [place] [address] PCP - Medical [place] [employer]06/12/2311 Lázaro Villavicencio, DO [address] [place] [address] PCP - [facility]08/19/22Team MemberRelationshipSpecialtyStart DateEnd Date Jerry Reynolds, [address] [place] [address] PCP - [facility]06/12/2311 Lázaro Villavicencio, DO [address] [place] [address] [facility] - [facility]08/19/22Team MemberRelationshipSpecialtyStart DateEnd Date Jerry Reynolds, [address] [place] [address] [facility] - [facility]06/12/2311 Lázaro Villavicencio, [address] [place] [address] [facility] - [facility]08/19/22Team MemberRelationshipSpecialtyStart DateEnd Date Jerry Reynolds, [address] [place] [address] [facility] - [facility]06/12/2311 Lázaro Villavicencio, [address] [place] [address] [facility] - [facility]08/19/22 Reason for Visit (unrecogniz ed section and content) ReasonOnset ExddQdiyzdngSjgbuxsm70/30/2025ReasonCommentsFollow-up FOR RECORDS PERTAINING TO PATIENTS WHO ARE OR HAVE BEEN ENROLLED IN A CHEMICAL DEPENDENCY/SUBSTANCEABUSE PROGRAM, SOME INFORMATION MAY BE OMITTED. This clinical summary was aggregated from multiple sources. Caution should be exercised in using it in the provision of clinical care. This summary normalizes information from multiple sources, and as a consequence, information in this document may materially change the coding, format and clinical context of patient data. In addition, data may be omitted in some cases. CLINICAL DECISIONS SHOULD BE BASED ON THE PRIMARY CLINICAL RECORDS. [facility]. provides no warranty or guarantee of the accuracy or completeness of information in this document.
--- OUTSIDE RECORDS SUMMARY | 2025-03-10 22:45 | XMS_ITS | Continuity of Care Document ---
Author Organization [facility] Address [address] [address] Insurance Providers Payer Plan Claims Address Claims Phone Policy Number Group Number Relation Employer Guarantor Name Guarantor Guarantor Address Guarantor Phone [id number] K [id number] [place] [id number] [place] [id number] Gail [place] [id number] [place] [address] [facility] [address] [place] [address] [id number] [address] [place] [address] Problems Condition ICD9 code ICD10 code SNOMED code Start Date End Date S tatus Encounter for screening for other metabo lic disorders Z13.228 Results No Results Allergies, adverse reactions, alerts No known allergies and adverse reactions Medications No administered medications reported Vital Signs No vital signs reported Social History No smoking Hx information available
--- OUTSIDE RECORDS SUMMARY | 2025-03-10 22:45 | XMS_ITS | Clinical Summary ---
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 Kiln Operator Name Role Phone SyracuseJerry peters Bhaskar DO Unavailable [phone] Lázaro Jonas DO Primary Care Provider [phone] Allergies Active AllergyReactionsCriticalityNoted DateCommentsAce InhibitorsCough 05/10/2024odeineGI evsnoxhrakt72/28/2025orn LfrZtahcox48/28/2025Penicillins Xhzgddw4211/20/2011 UNKNOWN TOLD SINCE Medications MedicationSigDispense QuantityRefillsLast FilledStart DateEnd DateStatus acyclovir (Zovirax) 200 MG capsule Indications:HerpesTAKE 1 CAPSULE BY MOUTH TWICE A DAY FOR 5 DAYS 10 capsule ctive losartan-hydroCHLOROthiazide (Hyzaar) 100-25 MG tablet Indications:Essential hypertensionTake 1 tablet by mouth Daily 90 tablet 5Active Active Problems ProblemNoted DateDiagnosed DateAbnormal weight gain05/10/20248729Envrke16/28/2025 Carpal tunnel kiefujbl41/28/2025Essential weizdtxxjbkf53/28/2025Obesity 05/10/2024yst of ovary02/23/2013enign essential hypertension, antepartum ([facility])11/20/2011 Overview (05/10/2024): Updating deleted diagnoses Poor growth, affecting management of mother, antepartum condition or complication ([facility])11/20/2011High blood wzasajfb36/01/2012 Overview (05/10/2024): Started during last . Delivered 2 months early to fix it. Still on meds. Social History Tobacco UseTypesPacks/DayYears UsedDateSmoking Tobacco: NeverSmokeless Tobacco: Never Tobacco Cessation:Counseling Given: Yes B1300 Health LiteracyAnswerDate RecordedHow often do you need to have someone help you when you read instructions, pamphlets, or other written material from your doctor or pharmacy?Never05/10/2024Social Connection and Isolation Panel AnswerDate RecordedIn a typical week, how many times do you talk on the phone with family, friends, or neighbors?More than three times a week05/10/2024How often do you get together with friends or relatives?Once a week05/10/2024How often do you attend orthodoxy or samaritan services?Never05/10/2024Do you belong to any clubs or organizations such as orthodoxy groups, unions, fraternal or athletic groups, or school groups?No05/10/2024How often do you attend meetings of the clubs or organizations you belong to?Patient oraechqt33/28/2025re you , , , , never , or living with a partner? 05/10/2024UDIT-CAnswerDate RecordedQ1: How often do you have a drink containing alcohol?Monthly or less05/10/2024Q2: How many drinks containing alcohol do you have on a typical day when you are drinking?1 or Q3: How often do you have six or more drinks on one occasion?Never05/10/2024Overall Financial Resource Strain (CARDIA)AnswerDate RecordedHow hard is it for you to pay for the very basics like food, housing, medical care, and heating?Somewhat hard 05/10/2024PHQ-2AnswerDate RecordedPatient Health Questionnaire-2 Score0 11/09/2024[facility] [place] [facility] - Occupational Stress QuestionnaireAnswerDate RecordedDo you feel stress - tense, restless, nervous, or anxious, or unable to sleep at night because yourmind is troubled all the time - these days?Not at all05/10/2024Exercise Vital SignAnswerDate RecordedOn average, how many days per week do you engage in moderate to strenuous exercise (like a brisk walk)?3 days05/10/2024On average, how many minutes do you engage in exercise at this level?20 min05/10/2024Hunger Vital SignAnswerDate Recorded Within the past 12 months, you worried that your food would run out before you got the money to buymore.Sometimes true05/10/2024Within the past 12 months, the food you bought just didn't last and you didn't have money to get more.Never true05/10/2024PRAPARE - TransportationAnswerDate RecordedIn the past 12 months, has lack of transportation kept you from medical appointments or from getting medications?No05/10/2024In the past 12 months, has lack of transportation kept you from meetings, work, or from getting things needed for daily living?No 05/10/2024Housing Stability Vital SignAnswerDate RecordedIn the last 12 months, was there a time when you were not able to pay the mortgage or rent on time?No 05/10/2024In the past 12 months, how many times have you moved where you were living?t any time in the past 12 months, were you homeless or living in a jail (including now)?No05/10/2024CommentsUnknownSex and Gender InformationValueDate RecordedSex Assigned at BirthNot on fileLegal SexFemale 06/25/2022 6:53 PM EDTGender IdentityNot on fileSexual OrientationNot on file Last Filed Vital Signs Vital SignReadingTime TakenCommentsBlood Bzopfrvd559/8007 8:55 AM EDT Xrkqb9684 8:55 AM LPTWpalthjaujl35.3 ??C (97.4 ??F)11/09/2024 8:55 AM EDTRespiratory Rate--Oxygen Ziuxpxynqt75%11/09/2024 8:55 AM EDTInhaled Oxygen Concentration--Msfboz17.4 kg (217 lb)11/09/2024 8:55 AM YIZNjyovv314.5 cm (5' 2 )11/09/2024 8:55 AM EDTBody Mass Index39.6907/ 8:55 AM EDT Plan of Treatment DateTypeDepartmentCare Team (Latest Contact Info)Idblfddqmno44/30/2026 8:00 AM ESTOffice Visit [facility] [address] [place] [address] Jerry Reynolds, [address] [place] [address] Health MaintenanceDue DateLast DoneCommentsPneumococcal Vaccine: Pediatrics (0 to 5 Years) and At-Risk Patients (6 to 64 Years) (1 of 2 - PCV)2001Pap Smear10/05/2003Cervical Cancer Iolyqnyky40/24/2013HPV/Vsvywk6110/04/2012COVID-19 Vaccine (2024- season)2024Influenza Vaccine (#1)2024Mammogram 6006/17/2024 Procedures Procedure NamePriorityDate/TimeAssociated DiagnosisCommentsBI MAMMOGRAM SCREENING TOMOSYNTHESIS OHPZVYVXMHpmzflr09/07/2025 8:13 AM EST Encounter for screening mammogram for malignant neoplasm of breast from Last 3 Months or Most Recently Relevant to Health Maintenance Results * Bilateral screening mammogram with tomosynthesis (06/17/2024 8:13 AM EST) Anatomical RegionLateralityModalityBreastBilateralMammographySpecimen (Source) Anatomical Location / LateralityCollection Method / VolumeCollection Time Received Time06/22/2024 9:18 AM EDT Impressions 06/22/2024 9:25 AM EDT Impression: No specific evidence of malignancy seen in either breast. BIRADS 2 - Benign Findings DENSITY: There are scattered areas of fibroglandular density. FOLLOW-UP: Routine Screening Mammogram ELECTRONICALLY SIGNED BY: Cosme Ayala M.D. Narrative 06/22/2024 9:25 AM EDT Examination: BI MAMMOGRAM SCREENING TOMOSYNTHESIS BILATERAL Clinical History: screening Technique: Screening digital mammography study of both breasts was performed with 2-D and 3-D tomosynthesis imaging. Study was compared to the prior exam dated 06/23/2012. Findings: There is no evidence of interval dominant spiculated mass, grouped microcalcifications, or skin thickening which would be suggestive of malignancy. ?? A few benign-appearing calcifications are noted bilaterally. Small benign- appearing asymmetric density in the mid, lateral aspect of the left breast faintly suggested previously and likely representing focal fibrocystic change. Procedure Note Cosme Ayala MD - 06/22/2024 Examination: BI MAMMOGRAM SCREENING TOMOSYNTHESIS BILATERAL Clinical History: screening Technique: Screening digital mammography study of both breasts wasperformed with 2-D and 3-D tomosynthesis imaging. Study was compared tothe prior exam dated 06/23/2012. Findings: There is no evidence of interval dominant spiculated mass,grouped microcalcifications, or skin thickening which would be suggestiveof malignancy. A few benign-appearing calcifications are noted bilaterally. Smallbenign- appearing asymmetric density in the mid, lateral aspect of the leftbreast faintly suggested previously and likely representing focalfibrocystic change. IMPRESSION: Impression: No specific evidence of malignancy seen in either breast. BIRADS 2 - Benign Findings DENSITY: There are scattered areas of fibroglandular density. FOLLOW-UP: Routine Screening Mammogram ELECTRONICALLY SIGNED BY: Cosme Ayala M.D. Authorizing ProviderResult TypeResult StatusJerry Reynolds [facility] BI PROCEDURES Final Result from Last 3 Months or Most Recently Relevant to Health Maintenance Insurance Care Teams Team MemberRelationshipSpecialtyStart DateEnd Jerry Reynolds DO [address] [place] [address] PCP - Medical [facility]06/12/2311 Lázaro Jonas DO [address] [place] [address] [facility]
--- OUTSIDE RECORDS SUMMARY | 2025-03-10 22:45 | XMS_ITS | Clinical Summary ---
Author Organization [facility] Address [address], [address] [place] [address] Care Team Providers Care Processor Helper Name Role Phone Lázaro Jonas DO Primary Care Provider [phone] Allergies Active AllergyReactionsCriticalityNoted DateCommentsPenicillinsOther (See Comments)11/20/2011 UNKNOWN TOLD SINCE Medications MedicationSigDispense QuantityRefillsLast FilledStart DateEnd DateStatus labetalol (NORMODYNE) 200 MG tablet Take 200 mg by mouth three times daily.Active ferrous sulfate 325 (65 FE) MG tablet Take 325 mg by mouth Daily.Active vitamin (-S) 27-0.8 MG TABS Take 1 tablet by mouth daily.Active Active Problems ProblemNoted DateDiagnosed DateBenign essential hypertension, antepartum 11/20/2011 Overview (11/08/2016): Updating deleted diagnoses Poor growth, affecting management of mother, antepartum condition or gaimyqvcsfet70/09/2012 Social History Tobacco UseTypesPacks/DayYears UsedDateSmoking Tobacco: Never Assessed CommentsUnknownSex and Gender InformationValueDate RecordedSex Assigned at Not on fileLegal VdoJqbyiw87/13/2013 12:03 AM ESTGender IdentityNot on file Sexual OrientationNot on file Last Filed Vital Signs Vital SignReadingTime TakenCommentsBlood Plhsarzw614/8811/20/2011 11:52 AM EDT Qlrlq695611/20/2011 11:15 AM NOCLpeocxlvlfi90.7 ??C (98 ??F)11/20/2011 11:15 AM EDTRespiratory Cupl990811/20/2011 11:15 AM EDTOxygen Saturation--Inhaled Oxygen Concentration--Zufcxq247.9 kg (260 lb)11/20/2011 11:15 AM EDTHeight--Body Mass Index-- Plan of Treatment Not on file Care Teams Team MemberRelationshipSpecialtyStart DateEnd Date Lázaro Jonas DO PCP - General11/13/11
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
[2025-03-10] MEDS: ALBUTEROL SULFATE 200 PUFF/6.7 GM INHALER IH (22:57)
== END 2025-03-10 23:00 | disposition home or self-care (01) ==
LOC: ER 22:42
PROVIDERS: Emergency Provider Student in an Organized Health Care Education/Training Program; PCP Family Medicine
DX: J98.01 Acute bronchospasm (principal); Z04.1 Encounter for examination and observation following transport accident
CPT/HCPCS: 71046; 99283

== ENCOUNTER 2025-03-12 12:10 | Emergency (ER) | payer OTHER, SELFPAY ==
--- OUTSIDE RECORDS SUMMARY | 2021-04-22 10:15 | XMS_ITS | Continuity of Care Document ---
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 Role Phone Delbert Elkins Unavailable Unavailable Procedures Procedure Date CHIROPRACTIC MANIPULATION CHIROPRACTIC MANIPULATION CHIROPRACTIC MANIPULATION CHIROPRACTIC MANIPULATION CHIROPRACTIC MANIPULATION CHIROPRACTIC MANIPULATION CHIROPRACTIC MANIPULATION CHIROPRACTIC MANIPULATION CHIROPRACTIC MANIPULATION CHIROPRACTIC MANIPULATION CHIROPRACTIC MANIPULATION CHIROPRACTIC MANIPULATION CHIROPRACTIC MANIPULATION CHIROPRACTIC MANIPULATION CHIROPRACTIC MANIPULATION TB INTRADERMAL TEST TB INTRADERMAL TEST Advance Directives Directive Yes / No Effective Date File Name No Information Encounters Encounter Description Practice Location Reason(s) For Visit Diagnoses Date Provider Providers Copied on Encounter [facility], [address] [place] [address], [id number], [place] tel:[phone] [facility] cervical spine (chief complaint)c ervical spine (chief complaint) Segmental and somatic dysfunction of cervical regionCervicalgia Radiculopathy, cervical regionSegmental and somatic dysfunction of lumbar region 2 Severo Mandujano. [address] [place], [place], [id number] , [place]. tel: [phone] [facility], [address] [place], [place], [id number], tel:[phone] [facility] cervical spine (chief complaint)c ervical spine (chief complaint) Segmental and somatic dysfunction of cervical regionCervicalgia Radiculopathy, cervical regionSegmental and somatic dysfunction of lumbar region 2 Severo Mandujano. [address] [place], [place], [id number] , [place]. tel: [phone] [facility], [address] [place] [address], [id number], tel:[phone] [facility] cervical spine (chief complaint)c ervical spine (chief complaint) Segmental and somatic dysfunction of cervical regionCervicalgia Radiculopathy, cervical regionSegmental and somatic dysfunction of lumbar region 1 Severo Mandujano. [address] [place], [place], [id number] , [place]. tel: [phone] [facility], [address] [place] [address], [id number], [place] tel:[phone] [facility] cervical spine (chief complaint)c ervical spine (chief complaint) Segmental and somatic dysfunction of cervical regionCervicalgia Radiculopathy, cervical regionSegmental and somatic dysfunction of lumbar region 1 Severo Mandujano. [address] [place] [address], [id number] , [place]. tel: [phone] [facility], [address] [place] [address], [id number], [place] tel:[phone] [facility] cervical spine (chief complaint)c ervical spine (chief complaint) Segmental and somatic dysfunction of cervical regionCervicalgia Radiculopathy, cervical regionSegmental and somatic dysfunction of lumbar region 1 Severo Mandujano. [address] [place] [address], [id number] , [place]. tel:[phone] [facility], [address] [place], [place], [id number], [place] tel:[phone] [facility] cervical spine (chief complaint)c ervical spine (chief complaint) Segmental and somatic dysfunction of cervical regionCervicalgia Radiculopathy, cervical regionSegmental and somatic dysfunction of lumbar region 1 Severo Mandujano. [address] [place] [address], [id number] , [place]. tel: [phone] [facility], [address] [place] [address], [id number], [place] tel:[phone] [facility] cervical spine (chief complaint)c ervical spine (chief complaint) Segmental and somatic dysfunction of cervical regionCervicalgia Radiculopathy, cervical regionSegmental and somatic dysfunction of lumbar region 1 Severo Mandujano. [address] [place] [address], [id number] , [place]. tel: [phone] [facility], [address] [place] [address], [id number], [place] tel:[phone] [facility] cervical spine (chief complaint)c ervical spine (chief complaint) Segmental and somatic dysfunction of cervical regionCervicalgia Radiculopathy, cervical regionSegmental and somatic dysfunction of lumbar region 1 Severo Mandujano. [address] [place] [address], [id number] , [place]. tel: [phone] [facility], [address] [place] [address], [id number], [place] tel:[phone] [facility] cervical spine (chief complaint)c ervical spine (chief complaint) Segmental and somatic dysfunction of cervical regionCervicalgia Radiculopathy, cervical regionSegmental and somatic dysfunction of lumbar region 1 Severo Mandujano. [address] [place] [address], [id number] , [place]. tel: [phone] [facility], [address] [place] [address], [id number], [place] tel:[phone] [facility] cervical spine (chief complaint)c ervical spine (chief complaint) Segmental and somatic dysfunction of cervical regionCervicalgia Radiculopathy, cervical regionSegmental and somatic dysfunction of lumbar region 8 1 Severo Mandujano. [address] [place] [address], [id number] , [place]. tel: [phone] [facility], [address] [place] [address], [id number], [place] tel:[phone] [facility] cervical spine (chief complaint)c ervical spine (chief complaint) Segmental and somatic dysfunction of cervical regionCervicalgia Radiculopathy, cervical regionSegmental and somatic dysfunction of lumbar region 1 Severo Mandujano. [address] [place] [address], [id number] , [place]. tel: [phone] [facility], [address] [place] [address], [id number], [place] tel:[phone] [facility] cervical spine (chief complaint)c ervical spine (chief complaint) Segmental and somatic dysfunction of cervical regionCervicalgia Radiculopathy, cervical regionSegmental and somatic dysfunction of lumbar region 2- 1 Severo Mandujano. [address] [place] [address], [id number] , [place]. tel: [phone] [facility], [address] [place] [address], [id number], [place] tel:[phone] [facility] cervical spine (chief complaint)c ervical spine (chief complaint) Segmental and somatic dysfunction of cervical regionCervicalgia Radiculopathy, cervical regionSegmental and somatic dysfunction of lumbar region 7- 1 Severo Mandujano. [address] [place] [address], [id number] , [place]. tel: [phone] [facility], [address] [place] [address], [id number], [place] tel:[phone] [facility] cervical spine (chief complaint)c ervical spine (chief complaint) Segmental and somatic dysfunction of cervical regionCervicalgia Radiculopathy, cervical regionSegmental and somatic dysfunction of lumbar region 1 Severo Mandujano. [address] [place], [place], [id number] , [place]. tel:[phone] [facility], [address] [place], [place], [id number], [place] tel:[phone] [facility] cervical spine (chief complaint)c ervical spine (chief complaint) Segmental and somatic dysfunction of cervical regionCervicalgia Radiculopathy, cervical regionSegmental and somatic dysfunction of lumbar region 1 Severo Mandujano. [address] [place], [place], [id number] , [place]. [phone] [facility], [address] [place] [address], [id number], [place] tel:[phone] [facility] No Information 1 Visci DO Joaquín. [address] [place], [place], [id number] , [place]. [phone] [facility], [address] [place] [address], [id number], [place] tel:[phone] [facility] No Information 1 Visci DO Joaquín. [address] [place], [place], [id number] , [place]. tel:[phone] Family History Family Member Type Diagnosis Age At Onset No Information Payers Payer name Insurance type Covered libertarian ID Authoriza tion(s) [place] [employer] [facility] [id number] Medicaid [facility] [id number] Social History Type Description Quantity Date Captured Comments Alcohol Use Details Unknown Caffeine Use Details Unknown Tobacco Use Status No Information Smoking Status No Information Sex Female Sexual Orientation Straight or heterosexual Gender Identity Female Chief Complaint And Reason For Visit From encounter dated '04/22/2021 15:15'. cervical spine (chief complaint) cervical spine (chief complaint). Description: Pt presents with tightness in neck and upper back Reason For Referral Reason For Referral No Information History Of Present Illness Encounter Date Complaint History Of Prese nt Illness cervical spine cervical spine Pt presents with tightness in neck and upper back cervical spine cervical spine Pt presents with tightness in neck and upper back this week cervical spine cervical spine Pt reports littl e change in hand numbness but is off work for over a week cervical spine cervical spine Pt reports stero id made little difference with radiculopathy cervical spine cervical spine Pt reports predn isone didn't really change sx much. Ortho referring back to neuro. cervical spine cervical spine Pt reports neck and back doing better but still numb in hands cervical spine cervical spine Pt still having numbness in hands cervical spine cervical spine pt reports emg s howed CPT b/l. Pt reports feeling again in 5th digits on both sides cervical spine cervical spine Pt scheduled for EMG this week cervical spine Pt reports quali ty of numbness in hands is changing cervical spine cervical spine cervical spine Pt reports impro vement with low back and foot drop after last visit. Still having numbness in hands cervical spine cervical spine Pt reports sligh t improvement with arm numbness cervical spine cervical spine Pt reports sligh t improvement since last visit. cervical spine cervical spine Pt reports doing well after first adjustment with no adverse effects. cervical spine C/O neck pain wi th numbness/tingling in both arms and hands. Original onset years ago but recently became worse. Pt also mentions recurring low back soreness.No specific injury or trauma is noted. Pain primarily at the cervicobrachial area and extends out to the trap and scapular border on the Rt. & Lt. Sx present with a pain scale of 10 (VAS = 1-10). Pain interferes with regular ADL's. Increase in pain with movement/ROM and ADL'S. Some decrease in Sx with rest. No change in the pain pattern from the onset of Sx. cervical spine Functional Status Date Functional Assessmen t No Information Instructions Date Instruction Additional Infor mation No Information Assessments Type Assessment Date assessment Segmental and somatic dysfunctio n of cervical region assessment Cervicalgia assessment Radiculopathy, cervical region J assessment Segmental and somatic dysfunctio n of lumbar region impression Patient Care Teams Name Effective Dates (start - stop) Status Members No Information
[2025-03-12 12:15] VITALS: BP 146/99; PULSE 87; TEMP 37; O2SAT 100; BMI 38.3
--- OUTSIDE RECORDS SUMMARY | 2025-03-12 12:29 | XMS_ITS | CCD ---
Author Organization [facility] Inform ion Partnership [facility] ([facility]) [facility] Care Team Providers Care Earrings Fabricator Name Role Phone ELIO, DR DIONICIO [place] [...] JIM Consulting Unavailable Jerry Reynolds DO Unavailable [phone] Lázaro Villavicencio DO Primary Care Provider JERRY REYNOLDS Attending Unavailable CUTLER JERRY L Referring Unavailable CUTLER JERRY L Referring Unavailable CUTLER JERRY L Attending Unavailable Allergies Allergy ClassificationReported Allergen(s)Allergy TypeDate of OnsetReaction(s) Facility (1 source)PenicillinsDrug allergy (disorder)61-17-[facility] (7 sources)Angiotensin-converting enzyme inhibitor agentDrug Sdusvln90-80-3757 [facility] (7 sources)CodeineDrug Zoejwdg77-51-8212VM intoleranceHeartland Behavioral Health Services (7 sources)Samson OilDrug Zkgcbqp51-92-9187DtrntqcQYPR Healthcare (7 sources)PenicillinsDrug Jfkjxanlamk72-04-2735PelajutAEAI Healthcare Medications Current Medications MedicationDrug Class(es)DatesSig (Normalized)Sig (Original)acyclovir 200 mg oral capsule (7 sources)Herpesvirus Nucleoside Analog DNA Polymerase Inhibitor, Herpes Simplex Virus Nucleoside Analog DNA Polymerase Inhibitor, Herpes Zoster Virus Nucleoside Analog DNA Polymerase InhibitorStart: 78-63-5508xfvd 1 capsule by mouth twice dailyacyclovir (Zovirax) 200 MG capsule Indications: Herpes TAKE 1 CAPSULE BY MOUTH TWICE A DAY FOR 5 DAYS 10 capsule 2 02/23/2024 Active hydroCHLOROthiazide 25 mg / losartan potassium 100 mg oral tablet (9 sources)Thiazide Diuretic, Angiotensin 2 Receptor BlockerStart: 08-26-2023 End: 06-91-6330umqy 1 tablet by mouth once dailylosartan-hydroCHLOROthiazide (Hyzaar) 100-25 MG tablet Indications: Essential hypertension Take 1 tablet by mouth Daily 90 tablet 3 05/11/2024 Active Completed/Discontinued Medications MedicationDrug Class(es)DatesSig (Normalized)Sig (Original)azelastine hydrochloride 0.137 mg/actuat metered dose nasal spray (3 sources)Histamine-1 Receptor AntagonistStart: 08-24-2023 End: 90-59-1713ouep 2 spray(s) nasal route in the morningazelastine (Astelin) 0.1 % nasal spray Indications: Chronic rhinitis Administer 2 sprays into each n ostril in the morning and 2 sprays before bedtime. Use 20 minutes before breakfast and dinner. 90 mL 3 08/24/2023 05/11/2024 Discontinuedipratropium bromide 0.042 mg/actuat metered dose nasal spray (6 sources)AnticholinergicStart: 08-24-2023 End: 06-66-6033neki 2 spray(s) nasal route in the morning, [...] DateEpisodic/ChronicAsthma (7 sources)Asthma; Translations: [Unspecified asthma, uncomplicated]Onset: 777903-31-1357DtnrucrPsznvrgpm of lipid metabolism (2 sources)Hyperlipidemia; Translations: [Hyperlipidemia, unspecified]05-11-2024 ChronicE Codes: Natural/environment (1 source)Exposure to other specified factors, initial encounter; Translations: [EXPOSURE OTHER SPEC FACTORS INITIAL]Onset: 91-99-6000JlaqodooEwzpaiqfc hypertension (17 sources)Essential (primary) hypertension; Translations: [Essential hypertension]Onset: 287590-78-9809YyubifoIdathyforxzl complicating ; childbirth and the puerperium (7 sources)Benign essential hypertension in obstetric context; Translations: [Pre-existing essential hypertension complicating , unspecified trimester]Onset: 752055-88-5742MnriezrFwokc aftercare (1 source)Other intermediate (current) drug therapy; Translations: [OTH JAIL CURRENT DRUG THERAPY]Onset: 41-41-4942VwvwtrppKjtvs ear and sense organ disorders (6 sources)Hearing loss of right ear; Translations: [Unspecified hearing loss, right ear]74-73-2437JkpjqqxCujyo nervous system disorders (7 sources)Carpal tunnel syndrome; Translations: [Carpal tunnel syndrome, unspecified upper limb]Onset: 570512-06-2591FrcjesnJaroz non-traumatic joint disorders (2 sources)Joint pain; Translations: [Pain in unspecified joint]11-09-2024 EpisodicOther non-traumatic joint disorders (2 sources)Multiple joint pain; Translations: [Pain in unspecified joint] 06-06-0442RbaqtybzIzwgq non-traumatic joint disorders (2 sources)Joint stiffness; Translations: [Stiffness of unspecified joint, not elsewhere classified]24-10-0419VsecfmwtYhmzn nutritional; endocrine; and metabolic disorders (7 sources)Obesity; Translations: [Obesity, unspecified]Onset: 05-10-2024 36-15-6644QrugaqxYmdmy screening for suspected conditions (not mental disorders or infectious disease) (4 sources)Patient encounter status; Translations: [Encounter for screening mammogram for malignant neoplasm of breast]69-83-4917LabsmczbXvdjbbojits; intervertebral disc disorders; other back problems (3 sources)Cervicalgia; Translations: [CERVICALGIA]Onset: 05-99-1287Jrqbftow Sprains and strains (1 source)Strain of muscle, fascia and tendon at neck level, initial encounter; Translations: [STRN MUSC FASCTENDON NECK LEVL INT]Onset: 24-67-0143Jwxeszmn Past or Other Problems Problem ClassificationProblemDateDocumented DateEpisodic/ChronicOther complications of (7 sources)Poor growth affecting management; Translations: [Maternal care for other known or suspected poor growth, unspecified trimester, not applicable or unspecified]Onset: 713631-21-7150YsvjowwrYhhkz nervous system disorders (4 sources)Anesthesia of skin; Translations: [ANESTHESIA OF SKIN]Onset: 62-39-7438XwyyxajpYovun nutritional; endocrine; and metabolic disorders (7 sources)Abnormal weight gain; Translations: [Abnormal weight gain]Onset: 041758-38-1186CnxvyucaCacfvwe cyst (7 sources)Cyst of ovary; Translations: [Unspecified ovarian cyst, unspecified side]Onset: 312570-60-4605Gvjzcytt Results Test NameValueInterpretationReference RangeFacilityBI MAMMOGRAM SCREENING TOMOSYNTHESIS BILATERALon 05-63-7722YY MAMMOGRAM SCREENING TOMOSYNTHESIS BILATERALThis is a summary [...] M.D.NormalNot AvailableCBC W Auto Differential panel (Bld)on 34-30-4340Ylyguafiv (Bld) [#/Vol]0.1 10*3/uLNOMS HealthcareBasophils/100 WBC (Bld)1 %Not Estab.[facility]OM[facility] HealthcareEosinophils (Bld) [#/Vol]0.2 10*3/uLNOMS HealthcareEosinophils/100 WBC (Bld)3 %Not Estab.NOM HealthcareErythrocyte distribution width (RBC) [Ratio]12.7 %11.7 - 15.4 %[facility]OMS HealthcareHematocrit (Bld) [Volume fraction]43.6 %34.0 - 46.6 %[facility] Healthcare Hemoglobin (Bld) [Mass/Vol]14 g/dL11.1 - 15.9 g/dLNOMO HealthcareImmature granulocytes (Bld) [#/Vol]0 10*3/uLNOMS HealthcareImmature granulocytes/100 WBC (Bld)0 %Not Estab.[facility]OMS HealthcareLymphocytes (Bld) [#/Vol]1.8 10*3/uLNOMS HealthcareLymphocytes/100 WBC (Bld)25 %Not Estab.[facility] HealthcareMCH (RBC) [Entitic mass]27.1 pg26.6 - 33.0 pgNOMO HealthcareMCHC (RBC) [Mass/Vol]32.1 g/dL 31.5 - 35.7 g/dLJORDAN VALLEY MEDICAL [facility]ENTER HealthcareMCV (RBC) [Entitic vol]84 fL79 - 97 fLJORDAN VALLEY MEDICAL CENTER HealthcareMonocytes (Bld) [#/Vol]0.4 10*3/uLNOMS HealthcareMonocytes/100 WBC (Bld)6 %Not Estab.NOM HealthcareNeutrophils (Bld) [#/Vol]4.5 10*3/uLNOMS HealthcareNeutrophils/100 WBC (Bld)65 %Not Estab.[facility] HealthcarePlatelets (Bld) [#/Vol]289 10*3/uLNOMS HealthcareRBC (Bld) [#/Vol]5.17 10*6/uLNOMS HealthcareWBC (Bld) [#/Vol]7 10*3/uLNOMS HealthcareLaboratory - Chemistry and Chemistry - challengeon 22-06-4628Xvimqsy [Mass/Vol]4.4 g/dL3.9 - 4.9 g/dLNOMS HealthcareALP [Catalytic activity/Vol]59 U/LNOMS HealthcareALT [Catalytic activity/Vol]14 U/L NOMS HealthcareAST [Catalytic activity/Vol]16 U/LNOMS HealthcareBilirubin [Mass/Vol]0.7 mg/dL0.0 - 1.2 mg/dLNOMO HealthcareCalcium [Mass/Vol]9.5 mg/dL8.7 - 10.2 mg/dLNOMO HealthcareChloride [Moles/Vol]100 mmol/L96 - 106 mmol/LNOMS HealthcareCO2 [Moles/Vol]25 mmol/L20 - 29 mmol/LNOMS HealthcareCreatinine [Mass/Vol]0.85 mg/dL0.57 - 1.00 mg/dLNOMO HealthcareGFR/1.73 sq M.predicted among non-blacks MDRD (S/P/Bld) [Vol rate/Area]88 mL/min/{1.73_m2}59 - PINF mL/min/1.73NOMS HealthcareGlobulin (S) [Mass/Vol]2.8 g/dL1.5 - 4.5 g/dLNOMO HealthcareGlucose [Mass/Vol]88 mg/dL70 - 99 mg/dLNOMO HealthcarePotassium [Moles/Vol]4 mmol/L3.5 - 5.2 mmol/LNOMS HealthcareProtein [Mass/Vol]7.2 g/dL6.0 - 8.5 g/dLNOMO HealthcareSodium [Moles/Vol]139 mmol/L134 - 144 mmol/LNOMS HealthcareUrea nitrogen [Mass/Vol]17 mg/dL6 - 24 mg/dLNOMO HealthcareUrea nitrogen/Creatinine [Mass ratio]20 mg/mg9 - 23NOMO HealthcareLipid 1996 panelon 75-73-7614Bjotrgrbbci [Mass/Vol]201 mg/zXFopi255 - 199 mg/dLNOTexas County Memorial Hospital Cholesterol in HDL [Mass/Vol]54 mg/dL39 - PINF mg/dLNOMO HealthcareCholesterol in LDL [Mass/Vol]134 mg/dLHigh0 - 99 mg/dLNOMO HealthcareCholesterol in VLDL [Mass/Vol]13 mg/dL5 - 40 mg/dLNOMO HealthcareInterpretation and review of laboratory resultsAbnormalNOMO HealthcareTriglyceride [Mass/Vol]69 mg/dL0 - 149 mg/dLNOTexas County Memorial HospitalNo Panel Informationon 40-16-6809Cygfodvth at: 01 - LabJamie Ville [id number] Lens Molding Equipment Operator: Eduardo Hollis PhD, Phone: [phone] HealthcareXR Hip Complete Left*on 02-44-2084SU Hip Complete Left*CLINICAL HISTORY: Left lateral hip pain. Leg weakness. COMPARISON: None. RESULT: No radiographic evidence for acute fracture in the bony pelvis or hips. Alignment at the SI joints and pubic symphysis maintained. Lower lumbar spine unremarkable. Hip joint spaces appear maintained. Soft tissues unremarkable. IMPRESSION: No acute osseous findings. Report reported and signed by Turner Wiseman on 01/02/2022 1457NormalNortUniversity Hospitals Samaritan Medical CenterXR CSPINE 2_3 VIEWSon 30-29-3631GT CSPINE 2_3 VIEWSEXAM: C-spine HISTORY: Neck pain [...] Electronically authenticated by: JAVIER NEWMAN Date: 2021-08-01 08:30[facility]on 92-75-7279GAL BRAIN WO CONMRI BRAIN WITHOUT CONTRAST; 05/08/2021 [...] Electronically authenticated by: JIM HICKEY Date: 2021-05-09 07:[address] [place], [place] [address]I CSPINE WO CONon 79-87-9499GBZ [facility] CONEXAMINATION: MRI [facility] CON HISTORY: Anesthesia of skin COMPARISON: No [...] Electronically authenticated by: RANDY DUMAS Date: 2021-05-09 07:[address] [place] [address] Vital Signs Date TimeVital SignValuePerforming RjvikudzsKjlamort68-47-5782 08:55-0400Body .5 Aixa Reynolds DO Work Phone: [phone]07-30-2025 08:55-0400Body mass index (BMI) [Ratio]39.69 kg/h3Boheras Eva DO Work Phone: [phone] [place], [place] 4566907-30-2025 08:55-0400Body temperature 97.39 [degF]Jerry Eva DO Work Phone: [phone] [place], [place] 4566907-30-2025 08:55-0400Body .43 kgTimothy Eva DO Work Phone: [phone] [place], [place] [address]Pjhmqfqkqy08-82-9060 08:55-0400Diastolic blood ajxstbcd47 mm[Hg]Jerry Eva DO Work Phone: [phone] [place], [place] 4566907-30-2025 08:55-0400Heart rate75 /min Jerry Eva DO Work Phone: [phone] [place], [place] 4566907-30-2025 08:55-1684KvC8% (BldA) [Mass fraction]98 %Jerry Eva DO Work Phone: [phone] [place], [place] 4566907-30-2025 08:55-0400Systolic blood odwfjado901 mm[Hg]Jerry Eva DO Work Phone: [phone] [place], [place] 4566901-29-2025 08:14-0500Body qmfjes978.5 cmTimothy Eva DO Work Phone: [phone] [place], [place] 4566901-29-2025 08:14-0500Body mass index (BMI) [Ratio]41.3 kg/k0Acclzdq Eva DO Work Phone: [phone] [place], [place] 4566901-29-2025 08:14-0500Body temperature 98.29 [degF]Jerry Eva DO Work Phone: [phone] [place], [place] 4566901-29-2025 08:14-0500Body .42 kgTimothy Eva DO Work Phone: [phone] [place], [place] 4566901-29-2025 08:14-0500Diastolic blood pvpivfdl70 mm[Hg]Jerry Eva DO Work Phone: [phone] [place], [place] 4566901-29-2025 08:14-0500Heart rate71 /min Jerry Eva DO Work Phone: [facility] Atyefkhseg42-35-7349 08:14-2632WsV0% (BldA) [Mass fraction]99 %Jerry Eva DO Work Phone: noms Itfyjvjplc98-42-8796 08:14-0500Systolic blood qbqhehuj958 mm[Hg]Jerry Eva DO Work Phone: [facility] Encounters Encounter DateEncounter TypeCare ProviderFacilityStart: 11-09-2024 End: 55-93-4902Pbqxwn flowsheetTimothy L Eva DO Work Phone: [facility] 230Start: 11-09-2024 End: 60-21-4730Taxqit flowsheetTimothy L Eva DO Work Phone: [facility] 230Start: 11-09-2024 End: 19-86-6463Vqixqsooq encounterTimothy L Eva DO Work Phone: [facility] 230Comment on above: ReferralStart: 11-09-2024 End: 04-16-0057Cymlwxv encounter statusTimothy L Eva DO Work Phone: noms HealthcareStart: 11-09-2024 End: 58-86-1183Zjtgenip preventive med est patient 40-64yrsTimothy L Eva DO Work Phone: [facility] 230Comment on above: Wellness examination (Primary Dx); Arthralgia, unspecified joint; Encounter for screening for coronary artery disease; Polyarthralgia; Stiff joint; Hearing loss of right ear, unspecified hearing loss typeStart: 11-09-2024 End: 96-63-3549bbyeuwixgjKRAUUJW L CUTLERNot AvailableStart: 06-17-2024 End: 73-17-3094nttvpdkggvSNUHEJE L CUTLERNot AvailableStart: 05-11-2024 End: 59-11-5163Mwffmn flowsheetTimothy L Eva DO Work Phone: [facility] 230Start: 05-11-2024 End: 21-98-5238Hncgsb flowsheetTimothy L Eva DO Work Phone: [facility] 230Start: 05-11-2024 End: 39-38-7482Smqbml outpatient visit 25 minutesTimothy Bhaskar Eva DO Work Phone: [facility] 230Comment on above:Hyperlipidemia, unspecified hyperlipidemia type (CMS/HCC) (Primary Dx); Encounter for screening mammogram for malignant neoplasm of breast; Essential hypertension (CMS/HCC)Start: 05-11-2024 End: 53-82-8887exbkmaeppbJJTXNNH Bhaskar CUTLERNot AvailableStart: 08-01-2021 End: 37-24-9878lhutienskoCS DIONICIO BALLARDFacility:P1Nomdl: 05-08-2021 End: 05-14-2170isjtooxkuhBA PAUL BRUNERFacility:H1 Procedures DateProcedureProcedure DetailPerforming ClinicianStart: 77-59-9229Zrskpasixjv Jerry Eva DO Work Phone: Start: 20-80-6891Eayxaoxn blood count with white cell differential, automatedTimcarmen Muro Eva DO Work Phone: Start: 82-87-4973Crezimdiawifn metabolic panelTimothy L Eva DO Work Phone: Start: 18-48-9291Yghkx panelTimothy L Eva DO Work Phone: Plan of Treatment DateCare ActivityDetailAuthorStart: 86-94-7696Lwbadgrua for malignant neoplasm of breastMammogramNOMS HealthcareStart: 05-12-2025 End: 74-49-7277Xlzfklh encounter wyevyeyjo72/30/2026 8:00 AM EST Office Visit [facility] [address] [place] [address] Jerry Reynolds, DO [address] [place], [place] [address] [facility] 230 Start: 28-46-3923Kksuaesnj vaccinationInfluenza Vaccine (#1)[facility] Start: 11-09-2024 End: 01-74-4035SVA by IFA, Reflex to Titer and PatternANA by IFA, Reflex to Titer and Pattern Lab Routine Arthralgia, unspecified joint Expected: 11/09/2024 (Approximate), Expires: 11/09/2025[facility] HealthcareComment on above:Expected: 11/09/2024 (Approximate), Expires: 11/09/2025Start: 11-09-2024 End: 11-09-2025. burgdorferi antibodiesB. burgdorferi antibodies Lab Routine Arthralgia, unspecified joint Expected: 11/09/2024, Expires: 11/09/2025[facility] HealthcareComment on above:Expected: 11/09/2024, Expires: 11/09/2025Start: 11-09-2024 End: 11-09-2025 reactive protein [Mass/volume] in Serum or PlasmaC-reactive protein Lab Routine Arthralgia, unspecified joint Expected: 11/09/2024 (Approximate), Expires: 11/09/2025[facility] HealthcareComment on above:Expected: 11/09/2024 (Approximate), Expires: 11/09/2025Start: 11-09-2024 End: 16-49-2428NNU W Auto Differential panel - BloodCBC and differential Lab Routine Wellness examination Encounter for screening for coronary artery disease Expected: 11/09/2024, Expires: 11/09/2025[facility] HealthcareComment on above: Expected: 11/09/2024, Expires: 11/09/2025Start: 11-09-2024 End: 99-21-9081Wkvgmqmcgtpye metabolic 2000 panel - Serum or PlasmaComprehensive metabolic panel Lab Routine Wellness examination Encounter for screening for coronaryartery disease Expected: 11/09/2024, Expires: 11/09/2025[facility] Healthcare Comment on above:Expected: 11/09/2024, Expires: 11/09/2025Start: 11-09-2024 End: 08-46-3097Eizrzw stranded dna, igg, reflex titerDouble stranded dna, igg, reflex titer Lab Routine Arthralgia, unspecified joint Expected: 11/09/2024 (Approximate), Expires: 11/09/2025[facility] HealthcareComment on above:Expected: 11/09/2024 (Approximate), Expires: 11/09/2025Start: 11-09-2024 End: 95-68-2846Pgymwdtkpbk sedimentation rateSedimentation rate, automated Lab Routine Arthralgia, unspecified joint Expected: 11/09/2024 (Approximate), Expires: 11/09/2025[facility] Work Phone: Comment on above:Expected: 11/09/2024 (Approximate), Expires: 11/09/2025Start: 11-09-2024 End: 87-66-4250Ehfky 1996 panel - Serum or PlasmaLipid panel Lab Routine Wellness examination Encounter for screening for coronary artery disease Exp ected: 11/09/2024, Expires: 11/09/2025N[facility] HealthcareComment on above:Expected: 11/09/2024, Expires: 11/09/2025Start: 11-09-2024 End: 85-33-5566Upgofqyzhv factor [Units/volume] in Serum or PlasmaRheumatoid factor Lab Routine Arthralgia, unspecified joint Expected: 11/09/2024 (Approximate), Expires: 11/09/2025[facility] HealthcareComment on above:Expected: 11/09/2024 (Approximate), Expires: 11/09/2025Start: 11-09-2024 End: 85-36-6277Fvsxe [Mass/volume] in Serum or PlasmaUric acid Lab Routine Arthralgia, unspecified joint Expected: 11/09/2024 (Approximate), Expires: [facility] HealthcareComment on above:Expected: 11/09/2024 (Approximate), Expires: 11/09/2025Start: 11-09-2024 End: 11-72-0865Pxfuerk encounter procedureNOMS [facility] FM 230Comment on above: ArrivedStart: 06-17-2024 End: 83-21-8366Hwgvcnxefywj / ancillary services ctrfcemizx75/07/2025 8:00 AM EST Ancillary Procedure [facility] [address] [place] [address] [facility] SANDUSKYStart: 05-11-2024 End: 44-95-4248ZXQ Breast - bilateral screeningBilateral screening mammogram with tomosynthesis Imaging Routine Encounter for screening mammogram for malignant neoplasm of breast Expected: 05/11/2024, Expires: 07/09/2025[facility] Work Phone: Comment on above:Expected: 05/11/2024, Expires: 07/09/2025Start: 05-11-2024 End: 18-39-3827Zmareob encounter tdaehgcij92/29/2025 8:20 AM EST Office Visit [facility] [address] [place] [phone] Jerry Reynolds DO [address] [place] [address] ArrivedNOMS [facility] 230Comment on above:ArrivedStart: 57-18-6204Ecvzfqbmy vaccinationInfluenza Vaccine (#1)[facility] HealthcareStart: 67-98-2968Vkgcvqejy for malignant neoplasm of breastMammogramNOMS Healthcare Start: 21-88-4841Amxzgmkzq for malignant neoplasm of cervixNOMS HealthcareStart: 03-76-1369Fftwbolfh for malignant neoplasm of cervixPap SmearNOMS Healthcare Payers DatePayer CategoryPayerPolicy [id number] Health InsuranceMEDICAL MUTUAL [id number] [id number] [id number] [id number] 2..1.405241.3.57[id number] 2.0.1.666718.3.579.2.18[id number] [id number] Social History DateTypeDetailFacilityStart: 01-01-1766Fcijfim smoking status NHISNever smoked tobaccoNOMS HealthcareStart: 77-55-0591Qzubeat use and exposureSmokeless tobacco non-userNOMS HealthcareStart: 05-10-2024 End: 16-35-4466Fminxjk of Social functionNOMS HealthcareStart: 05-10-2024 End: 39-89-5283S7300 Health LiteracyNOMS HealthcareHow often do you need to have someone help you when you read instructions, pamphlets, or other written material from your doctor or pharmacy [SILS]NeverNOMS HealthcareDo you belong to any clubs or organizations such as nondenominational groups, unions, fraternal or athletic groups, or [...] money to get more.Never trueNOMS Healthcare Start: 67-68-3492Ngw assigned at birthNot on [facility] Functional Status PtzjEtyftfrcffLenedbUxbdxxhh66-16-7338Eeviagn Health Questionnaire 2 item (PHQ- 2) [Reported][facility] Healthcare Telephone encounter Note 11-09-2024 Note Date & MqwdZaqkIacuycvv97-13-3742 Telephone encounter Note* Telephone Encounter - Erin Rizvi - 11/09/2024 11:[address] Grullon did receive the referral. Requesting fax of Most recent ov notes [facility] Healthcare Note 11-09-2024 Note Date & VxesEbbfNyhwyopz48-09-3349 Miscellaneous Notes* Telephone Encounter - Erin Rizvi - 11/09/2024 11:[address] Grullon did receive the referral. Requesting fax of Most recent ov notes documented in this encounterJ[facility] Healthcare History of Present illness Narrative 11-09-2024 Note Date & UaueXdhxBhqywvhq42-54-4941 History of Present illness Narrative* Jerry Reynolds, - 11/09/2024 9:00 AM EDT Images from the original note were not included. [facility] DANA Taylor SUBJECTIVE: HPI: Gail Montoya is [...] She has scheduled an appointment with her [employer] COLLECTOR for a Pap smear. She underwent a [...] 2024 was normal. - Follow up with [employer] COL[employer] for Pap smears. Follow-up - [facility] Jerry Reynolds DO Patient Active Problem List Diagnosis Abnormal weight gain Asthma (HCC) Benign essential hypertension, antepartum (HHS-HCC) Carpal tunnel syndrome Cyst of ovary Essential hypertension High blood pressure Obesity Poor growth, affecting management of mother, antepartum condition or complication (HHS-HCC) Past Medical History: Diagnosis Date Hypertension documented in [facility]Heart[facility] History of Present illness Narrative 05-11-2024 Note Date & OyxpVfiqHpxzicav62-61-5652 History of Present illness Narrative* Jerry Reynolds DO - 05/11/2024 8:20 AM EST Images from the original note were not included. [facility] DANA Taylor SUBJECTIVE: HPI: Gail Montoya is [...] Diagnosis Date Hypertension (CMS/HCC) documented in this encounterJ[facility] Evaluation note Note Date & TypeNoteFacilityEvaluation note* Diagnosis Hyperlipidemia, unspecified hyperlipidemia type (CMS/HCC)- Primary Encounter for screening mammogram for malignant neoplasm of breast Essential hypertension (CMS/HCC) Unspecified essential hypertension documented in this encounter [facility] Healthcare Evaluation note Note Date & TypeNoteFacilityEvaluation note* Diagnosis Wellness examination- Primary Arthralgia, unspecified joint Encounter for screening for coronary artery disease Polyarthralgia Pain in joint, multiple sites Stiff joint Stiffness of joint, not elsewhere classified, unspecified site Hearing loss of right ear, unspecified hearing loss type documented in this encounter [facility] Healthcare Summary Purpose Family History No Family History Records FoundNo Family History Records FoundNo Family History Records Found Advance Directives No Advanced Directives Records FoundNo Advanced Directives Records FoundNo Advanced Directives Records Found Additional Source Comments INFORMATION SOURCE (unrecogn ized section and content) DATE CREATED AUTHOR 10/22/2021 [facility] DATE CREATED AUTHOR AUTHOR'S ORGANIZ ATION 01/12/2022 [facility] Home Service Consultant DATE CREATED AUTHOR AUTHOR'S ORGANIZ ATION 11/11/2024 [facility] EPIC Care Teams (unrecognized sec tion and content) Team MemberRelationshipSpecialtyStart DateEnd Date Jerry Reynolds, DO [address] [place] [address] PCP - Medical [place] [employer]06/12/2311 Lázaro Villavicencio, DO [address] [place] [address] PCP - Generalmily Medicine08/19/22Team MemberRelationshipSpecialtyStart DateEnd Date Jerry Reynolds, [address] [place] [address] PCP - [facility]06/12/2311 Lázaro Villavicencio, DO [address] [place] [address] PCP - [facility]08/19/22Team MemberRelationshipSpecialtyStart DateEnd Date Jerry Reynolds, [address] [place] [address] PCP - [facility]06/12/2311 Lázaro Villavicencio, DO [address] [place] [address] [facility] - [facility]08/19/22Team MemberRelationshipSpecialtyStart DateEnd Date Jerry Reynolds, [address] [place] [address] [facility] - [facility]06/12/2311 Lázaro Villavicencio, [address] [place] [address] [facility] - [facility]08/19/22Team MemberRelationshipSpecialtyStart DateEnd Date Jerry Reynolds, [address] [place] [address] [facility] - [facility]06/12/2311 Lázaro Villavicencio, [address] [place] [address] [facility] - [facility]08/19/22 Reason for Visit (unrecogniz ed section and content) ReasonOnset MvexNgggxmxcQaqmhfid74/30/2025ReasonCommentsFollow-up FOR RECORDS PERTAINING TO PATIENTS WHO ARE [...] BE BASED ON THE PRIMARY CLINICAL RECORDS. [employer] [facility]. provides no warranty or guarantee of the accuracy or completeness of information in this document.
--- OUTSIDE RECORDS SUMMARY | 2025-03-12 12:31 | XMS_ITS | Clinical Summary ---
Author Organization [facility] Address [address], [address] [place] [address] Care Team Providers Care Tax Associate Name Role Phone Lázaro Jonas DO Primary Care Provider [phone] Allergies Active AllergyReactionsCriticalityNoted DateCommentsPenicillinsOther (See Comments)11/20/2011 [...] affecting management of mother, antepartum condition or sdcojrcgyjqx92/09/2012 Social History Tobacco UseTypesPacks/DayYears UsedDateSmoking Tobacco: Never Assessed CommentsUnknownSex and Gender InformationValueDate RecordedSex Assigned at Not on fileLegal FqyVeillb14/13/2013 12:03 AM ESTGender IdentityNot on file Sexual OrientationNot on file Last Filed Vital Signs Vital SignReadingTime TakenCommentsBlood Diqjxlvw858/8811/20/2011 11:52 AM EDT Mrlup726711/20/2011 11:15 AM JXHCneucroxqpp89.7 ??C (98 ??F)11/20/2011 11:15 AM EDTRespiratory Fovg542111/20/2011 11:15 AM EDTOxygen Saturation--Inhaled Oxygen Concentration--Tsqmwm089.9 kg (260 lb)11/20/2011 11:15 AM EDTHeight--Body Mass Index-- Plan of Treatment Not on file Care Teams Team MemberRelationshipSpecialtyStart DateEnd Date Lázaro Jonas DO PCP - General11/13/11
--- OUTSIDE RECORDS SUMMARY | 2025-03-12 12:31 | XMS_ITS | Clinical Summary ---
Author Organization [facility] Address [address] [place] [address] Care Team Providers Care Power Equipment Mechanics Instructor Name Role Phone FranklinJerry peters Bhaskar DO Unavailable [phone] Lázaro Jonas DO Primary Care Provider [phone] Allergies Active AllergyReactionsCriticalityNoted DateCommentsAce InhibitorsCough 05/10/2024odeineGI rgfyubycozu35/28/2025orn DswSdpymmn77/28/2025Penicillins Xwtuere9611/20/2011 UNKNOWN TOLD SINCE Medications MedicationSigDispense QuantityRefillsLast FilledStart DateEnd DateStatus acyclovir (Zovirax) 200 MG capsule Indications:HerpesTAKE 1 CAPSULE BY MOUTH TWICE A DAY FOR 5 DAYS 10 capsule ctive losartan-hydroCHLOROthiazide (Hyzaar) 100-25 MG tablet Indications:Essential hypertensionTake 1 tablet by mouth Daily 90 tablet 5Active Active Problems ProblemNoted DateDiagnosed DateAbnormal weight gain05/10/20249046Fskmbi28/28/2025 Carpal tunnel kldwdcih97/28/2025Essential zemldkbxwgjo83/28/2025Obesity 05/10/2024yst of ovary02/23/2013enign essential hypertension, antepartum ([facility]11/20/2011 Overview (05/10/2024): Updating deleted diagnoses Poor growth, affecting management of mother, antepartum condition or complication ([facility])11/20/2011High blood hdymqhny94/01/2012 Overview (05/10/2024): Started during last . Delivered [...] relatives?Once a week05/10/2024How often do you attend presybeterian or jainism services?Never05/10/2024Do you belong to any clubs or organizations such as presybeterian groups, unions, fraternal or athletic groups, or school groups?No05/10/2024How often do you attend meetings of the clubs or organizations you belong to?Patient fqncozjp73/28/2025re you , , , , never , [...] heating?Somewhat hard 05/10/2024PHQ-2AnswerDate RecordedPatient Health Questionnaire-2 Score0 11/09/2024[facility] [place] [facility] - Occupational Stress QuestionnaireAnswerDate [...] were you homeless or living in a fci (including now)?No05/10/2024CommentsUnknownSex and Gender InformationValueDate RecordedSex Assigned at BirthNot on fileLegal SexFemale 06/25/2022 6:53 PM EDTGender IdentityNot on fileSexual OrientationNot on file Last Filed Vital Signs Vital SignReadingTime TakenCommentsBlood Skgkdhtw224/8007 8:55 AM EDT Yjhke1742 8:55 AM WBVPixpjyhsolc53.3 ??C (97.4 ??F)11/09/2024 8:55 AM EDTRespiratory Rate--Oxygen Mtgaomfugb76%11/09/2024 8:55 AM EDTInhaled Oxygen Concentration--Ltmheh13.4 kg (217 lb)11/09/2024 8:55 AM NPUNwepfw095.5 cm (5' 2 )11/09/2024 8:55 AM EDTBody Mass Index39.6907/ 8:55 AM EDT Plan of Treatment DateTypeDepartmentCare Team (Latest Contact Info)Rblousygkrg14/30/2026 8:00 AM ESTOffice Visit [facility] [address] [place] [address] Jerry Reynolds, [address] [place] [address] Health MaintenanceDue DateLast DoneCommentsPneumococcal Vaccine: Pediatrics (0 to 5 Years) and At-Risk Patients (6 to 64 Years) (1 of 2 - PCV)2001Pap Smear10/05/2003Cervical Cancer Okqfmgtln35/24/2013HPV/Cariuf6510/04/2012COVID-19 Vaccine (2024- season)2024Influenza Vaccine (#1)2024Mammogram 6006/17/2024 Procedures Procedure NamePriorityDate/TimeAssociated DiagnosisCommentsBI MAMMOGRAM SCREENING TOMOSYNTHESIS SYDOBNGDYHpechnq32/07/2025 8:13 AM EST Encounter for screening mammogram [...] Ayala M.D. Authorizing ProviderResult TypeResult StatusJerry Reynolds [facility] BI PROCEDURES Final Result from Last 3 Months or Most Recently Relevant to Health Maintenance Insurance Care Teams Team MemberRelationshipSpecialtyStart DateEnd Jerry Reynolds DO [address] [place] [address] PCP - Medical [facility]06/12/2311 Lázaro Jonas DO [address] [place] [address] [facility]
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
[2025-03-12 14:48] VITALS: BP 145/97; PULSE 76; O2SAT 100
== END 2025-03-12 14:51 | disposition home or self-care (01) ==
PROVIDERS: Emergency Provider Emergency Medicine; PCP Family Medicine
DX: S09.8XXA Other specified injuries of head, initial encounter (principal); V49.50XA Passenger injured in collision with unspecified motor vehicles in traffic accident, initial encounter
CPT/HCPCS: 70450; 99284